=== PATIENT | male | born 1975 | race Caucasian/White ===

== ENCOUNTER 2018-02-12 00:04 | Inpatient (IN) ==
[2018-02-12 01:16] LABS: Basophils # 0.1 K/mcL (0.0-0.2); Basophils % 0.4 %; Eosinophils # 0.2 K/mcL (0.0-0.6); Eosinophils % 1.6 %; Hematocrit 51.7 % (37.5-50.1); Immature Granulocytes % 0.5 % (0-4); Lymphocytes # 2.2 K/mcL (0.6-4.6); Lymphocytes % 18.5 %; Mean Corpuscular HGB Conc 34.8 g/dL (31.6-35.5); Mean Corpuscular Hemoglobin 32.8 pg (28.0-33.3); Mean Corpuscular Volume 94.3 fL (83.0-100.0); Mean Platelet Volume 10.2 fL (9.4-12.4); Monocytes # 0.7 K/mcL (0.0-1.3); Monocytes % 6.1 %; Neutrophils # 8.7 K/mcL (1.6-8.9); Platelet Count 234 K/mcL (140-400); Red Blood Count 5.48 M/mcL (4.19-5.50); Segmented Neutrophils % 72.9 %
[2018-02-12 01:19] LABS: INR 0.9; Prothrombin Time 9.7 Seconds (9.4-12.1)
[2018-02-12 01:22] LABS: Activated Partial Thrombo Time 30.7 Seconds (26.0-36.0)
[2018-02-12 01:38] LABS: BUN/Creatinine Ratio 17 (6-26); Blood Urea Nitrogen 16 mg/dL (6-20); Calcium 9.9 mg/dL (8.6-10.3); Carbon Dioxide 22 mEq/L (23-29); Chloride 98 mEq/L (98-107); Glucose 379 mg/dL (70-105); Osmolality,Calculated 291 (280-300); Potassium 4.4 mEq/L (3.5-5.1); Sodium 132 mEq/L (136-145); eGFR For Non-African Americans > 60 (> 60)
[2018-02-12 01:48] LABS: Troponin I 0.99 ng/mL (< 0.04)
[2018-02-12] MEDS ORDERED: Aspirin 81 MG TAB.CHEW PO ONE (02:05)
[2018-02-12] MEDS ORDERED: Nitroglycerin 0.4 MG TAB.SUBL SL ONE (02:09)
[2018-02-12] MEDS: Nitroglycerin 0.4 MG TAB.SUBL SL PRN ×3 (02:11→02:36)
[2018-02-12] MEDS ORDERED: Isovue-370 500 ML INFUS..BTL IV ONE (03:40)
[2018-02-12] MEDS ORDERED: Amiodarone 150 MG in D5% in Water 100 ML IVPB ONE (03:49)
[2018-02-12] MEDS ORDERED: Amiodarone Premix 360 MG/200 ML BAG IVC ONE (03:50)
--- NOTE | 2018-02-12 03:52 | Emergency Department Note ---
Disposition Clinical Impression: Non-STEMI (non-ST elevated myocardial infarction), Nonsustained ventricular tachycardia Chest pain Qualifiers: Chest pain type: unspecified Qualified Code(s): R07.9 - Chest pain, unspecified Disposition: Admitted As Inpatient Condition: Serious Referrals: Danny Jacob Jr, MD [Primary Care Provider] - Forms: ED Satisfaction Letter Time of Disposition: 05:42 Chest Pain HPI - General Chief Complaint: ED Chest Pain Stated Complaint: cp Time Seen by Provider: 02/12/18 02:02 Source: patient, family Limitations: no limitations Vital Signs Reviewed: Yes Nursing Notes Reviewed: Yes - History of Present Illness HPI Narrative: 42-year-old male with history of type 2 diabetes and hypertension but is noncompliant and does not take medication for the hypertension. He presents complaining of right-sided chest pain which started about 5 PM this evening and has been constant since onset. He states the pain was mild initially and then became worse and he did develop some diaphoresis with the pain. No shortness of breath. The pain radiated to the right axilla and to the right scapular region. He still has the pain and rates it about a 5 out of 10. He is a smoker and smokes one pack per day. Patient relates that he has been having this same pain intermittently for the past several months but not as severe and it usually does not last as long. The pain is usually associated with certain movements and use of the right arm and shoulder. Also the pain is reproduced with palpation over the right mid anterior chest. He has no prior cardiac history. Pt complaint: chest pain Onset (ago): hour(s) (7) Duration: constant Onset: during rest Pain Location: right chest Severity: moderate Severity scale (1-10): 5 Quality: aching, sharp Pain Radiation: other (Right axilla and right scapula) Improves with: nothing Worsens with: movement Associated symptoms: Reports: diaphoresis. Denies: nausea, vomiting, dyspnea, sense of impending doom, syncope, palpitations, fever, cough, leg swelling Treatments prior to arrival chest pain: none - Related Data Allergies Allergy/AdvReac Type Severity Reaction Status Date / Time Penicillins Allergy Hives Verified 05/14/15 20:25 All systems ED: reviewed and negative except as stated. Constitutional: Denies: fever, chills Cardiovascular: Reports: chest pain. Denies: palpitations, dyspnea on exertion , edema, syncope Respiratory: Denies: cough, dyspnea Gastrointestinal: Denies: abdominal pain, nausea, vomiting, diarrhea, hematemesis, melena, hematochezia Genitourinary: Denies: dysuria, frequency, hematuria Musculoskeletal: Denies: back pain, neck pain Neurological: Denies: headache, weakness, numbness, paresthesias Psychiatric: Denies: anxiety, depression Endocrine: Denies: fatigue Hematological/Lymphatic: Denies: easy bleeding, easy bruising Allergic/Immunologic: Denies: facial swelling Chest Pain PMH - Past Medical History Medical history: Reports: diabetes, hyperlipidemia, hypertension Psychiatric history: Reports: no psych history - Social History Smoking Status: Current every day smoker Alcohol use: Reports: none Drug use: Reports: none Physical Exam - General Limitations: no limitations General appearance: alert, in no apparent distress - Head Head exam: atraumatic, normocephalic, normal inspection - Eye Eye exam: Present: normal appearance, PERRL, EOMI - ENT ENT exam: normal exam, normal oropharynx, mucous membranes moist, TM's normal bilaterally - Neck Neck exam: Present: normal inspection, full ROM, trachea midline. Absent: tenderness, meningismus - Chest Chest inspection: Present: normal inspection, symmetric chest wall rise, tenderness (There is tenderness to palpation over the right anterior chest wall which does reproduce the patient's chest discomfort.) - Respiratory Respiratory exam: Present: normal lung sounds bilaterally. Absent: respiratory distress, accessory muscle use - Cardiovascular Cardiovascular exam: Present: regular rate, normal rhythm, normal heart sounds - Abdominal Exam Abdominal exam: Present: soft, Non-Tender, normal bowel sounds - Extremities Exam Extremities exam: Present: normal inspection, full ROM. Absent: tenderness, pedal edema - Back Exam Back exam: Present: normal inspection. Absent: CVA tenderness (R), CVA tenderness (L) - Neurological Exam Neurological exam: Present: alert, oriented X3. Absent: motor sensory deficit - Psychiatric Psychiatric exam: Present: normal affect, normal mood - Skin Skin exam: Present: warm, dry, intact, normal color. Absent: cyanosis, diaphoresis Course - Consultations Consultation #1: Discussed with the rn lvn accreditation manager, Dr. Chambers, and he recommended a CTA to make sure the patient does not have aortic dissection and if that is negative he can be admitted to the hospitalist for serial troponins. He did recommend heparin after ruling out dissection. Just after I talked with him initially patient had a run of V. tach about 20 beats which resolved spontaneously. He was asymptomatic with this episode. I am placing him on amiodarone bolus and infusion. CTA of the chest abdomen pelvis was negative. Patient was started on low-dose heparin infusion for ACS. The hospitalist, Dr. Castro, was consulted and accepted admission of the patient. Time: 03:39 Vital Signs Temperature 97.9 F 02/12/18 00:17 Pulse Rate 87 02/12/18 00:17 Respiratory Rate 18 02/12/18 00:17 Blood Pressure 180/121 02/12/18 00:17 O2 Sat by Pulse Oximetry 97 02/12/18 00:17 Temperature 97.9 F 02/12/18 00:17 Pulse Rate 78 02/12/18 04:52 Respiratory Rate 11 02/12/18 04:52 Blood Pressure 157/101 02/12/18 04:52 O2 Sat by Pulse Oximetry 96 02/12/18 04:52 Oxygen Delivery Oxygen Delivery Nasal Cannula Chest Pain - Lab Data Lab results reviewed: Yes I reviewed the patient's lab results. Result diagrams: 02/12/18 00:50 02/12/18 00:50 Lab Results 02/12/18 02/12/18 02/12/18 Range/Units 00:50 00:50 00:50 WBC 11.9 H (4.3-11.1) K/mcL RBC 5.48 (4.19-5.50) M/mcL Hgb 18.0 H (12.9-16.9) g/dL Hct 51.7 H (37.5-50.1) % MCV 94.3 (83.0-100.0) fL MCH 32.8 (28.0-33.3) pg MCHC 34.8 (31.6-35.5) g/dL RDW 12.0 (11.5-14.5) % Plt Count 234 (140-400) K/mcL MPV 10.2 (9.4-12.4) fL Immature Gran % 0.5 (0-4) % Seg Neutrophils % 72.9 % Lymphocytes % 18.5 % Monocytes % 6.1 % Eosinophils % 1.6 % Basophils % 0.4 % Neutrophils # 8.7 (1.6-8.9) K/mcL Lymphocytes # 2.2 (0.6-4.6) K/mcL Monocytes # 0.7 (0.0-1.3) K/mcL Eosinophils # 0.2 (0.0-0.6) K/mcL Basophils # 0.1 (0.0-0.2) K/mcL PT 9.7 (9.4-12.1) Seconds INR 0.9 APTT 30.7 (26.0-36.0) Seconds Sodium 132 L (136-145) mEq/L Potassium 4.4 (3.5-5.1) mEq/L Chloride 98 (98-107) mEq/L Carbon Dioxide 22 L (23-29) mEq/L BUN 16 (6-20) mg/dL Creatinine 0.92 (0.70-1.30) mg/dL Est GFR ( Amer) > 60 (> 60) Est GFR (Non-Af Amer) > 60 (> 60) BUN/Creatinine Ratio 17 (6-26) Glucose 379 H (70-105) mg/dL Calculated Osmolality 291 (280-300) Calcium 9.9 (8.6-10.3) mg/dL Troponin I 0.99 H* (< 0.04) ng/mL - Radiology Data Radiology results reviewed: Yes I reviewed the patient's radiology results. Chest X-Ray 02/12/18 00:56 IMPRESSION: No acute cardiopulmonary disease. D/ / Jay Slade MD / Jay Slade MD Interpreting Provider: Jay Slade MD Abdomen/Pelvis CTA 02/12/18 03:40 IMPRESSION: 1. No evidence of an acute aortic syndrome. 2. No acute pulmonary embolism in the central pulmonary arterial tree. 3. Diffuse airway inflammation may be seen in asthma, bronchitis or smoking. No consolidative airspace disease. 4. No acute abdominopelvic findings. D/ / Anthony Lynn / Anthony Lynn Interpreting Provider: Anthony Lynn Chest CTA 02/12/18 03:40 IMPRESSION: 1. No evidence of an acute aortic syndrome. 2. No acute pulmonary embolism in the central pulmonary arterial tree. 3. Diffuse airway inflammation may be seen in asthma, bronchitis or smoking. No consolidative airspace disease. 4. No acute abdominopelvic findings. D/ / Anthony Lynn / Anthony Lynn Interpreting Provider: Anthony Lynn - EKG Data EKG attestation: Yes I reviewed and interpreted this EKG. EKG results narrative: EKG shows a sinus rhythm with ventricular rate of 88. MN interval 117. No acute ST segment elevation or depression. No acute T-wave abnormalities. Critical Care Time Critical Care Time: Yes Total Critical Care Time: 45 Attestation: Critical care performed: Time is exclusive of separately billable procedures. Time includes: direct patient care, patient reassessment, coordination of patient care, interpretation of data (laboratory data, radiology data, and respiratory data), review of patient's medical records, medical consultation and documentation of patient care. Procedures included in critical care time: Procedures excluded from critical care time:
[2018-02-12] MEDS ORDERED: Amiodarone Premix 150 MG/100 ML BAG IVPB ONE (04:00)
[2018-02-12] MEDS ORDERED: *HR* Heparin 5,000 UNIT/ML VIAL IVP PRN ×2 (05:35)
[2018-02-12] MEDS ORDERED: *HR* Heparin 5,000 UNIT/ML VIAL IVP ONE (05:35)
[2018-02-12] MEDS ORDERED: Heparin 25,000 UNIT/500 ML D5W 25,000 UNIT/500 ML BAG IVC SCH (05:45)
--- NOTE | 2018-02-12 08:10 | Internal Med History&Physical ---
Date of Encounter: 02/12/18 Time of Encounter: 08:05 Internal Medicine - H&P: HPI Chief complaint: Chest Pain Admitted From: Home Plans for Post Hospital Care: Home History of present illness: Mr. Martins is a 42 year old male with past history of hypertension diabetes and tobacco dependence who presents to [facility] with chief complaint of chest pain. The patient states that last evening he developed sudden onset right-sided chest discomfort that he describes as a dull ache. The patient states that he was not participating in exertion or physical activity at the time. The patient states that this pain radiated to his right back and right shoulder. He states he has had this in the past however he developed diaphoresis and now with nausea which he has never had associated with this pain before. Patient presented to the emergency department and had an elevated troponin of 0.99 and after CTA ruled out aortic dissection was started on IV heparin drip. The patient did have T-wave inversions in the lateral leads in a subsequent EKG. Also in the emergency department the patient developed episode of nonsustained ventricular tachycardia. This terminated spontaneously however the patient was started on IV amiodarone in the emergency room. Currently the patient states he continues to have the right -sided chest pain. He does have pain with palpation of the right pectoral muscle; that he states is similar to the discomfort that he has been describing. The patient states he has had a stress test but it was over 20 years ago. Other than the chest pain the patient admits to mild nausea currently denies any shortness of breath, fevers, palpitations, vomiting, diarrhea, abdominal pain, blurry vision, double vision, dyspnea on exertion, orthopnea. Patient also admits that his father from [place] while in his 40s Past Med Surg Social Fam HX - Past Medical History Medical history: diabetes, hyperlipidemia, hypertension Psychiatric history: no psych history - Past Surgical History Surgical History: no surgical history - Social History Smoking Status: Current every day smoker Smokeless Tobacco Status: No Alcohol use: none Drug use: none Activity Level: Independent ambulation - Family History Father Paternal Hx Family Cardiac Disorders: Yes (Father from [place] in his 40s) - Additional Family History Additional family history: Patient denies any contributory family history other than paternal cardiac disease Internal Medicine - H&P: Meds 3 Allergy/AdvReac Type Severity Reaction Status Date / Time Penicillins Allergy Hives Verified 05/14/15 20:25 All Systems PM: A 10-system review of systems was performed and is negative for pertinent findings except as documented above in the HPI. Review of systems: 10 point review of systems is obtained and is otherwise negative other than described in history of present illness - Constitutional Vitals: Temp Pulse Resp BP Pulse Ox 98.1 F 85 18 154/114 94 02/12/18 06:53 02/12/18 06:53 02/12/18 06:53 02/12/18 06:53 02/12/18 06:53 Exam: Constitutional: No acute distress, Alert Psych: AAO x 3 HEENT: NCAT, EOMI Neck: supple, no JVD Cardio: regular rate and rhythm, +s1s2, no murmurs/rubs/gallops, no JVD Chest: admits to pain with palpation over right lower pectoral muscle Resp: clear to ascultation bilaterally, no wheezes/rales/ronchi Abd: obest, soft, non tender/non distended, positive bowel sounds, no gaurding/ reboud/ridgitity Extremities: no clubbing/cyanosis/edema appreciated Neuro: no focal deficits appreciated Lymph: no cervical/supraclavicular adenopahty apprecitated Internal Med - H&P Results - Labs CBC & Chem 7: 02/12/18 00:50 02/12/18 00:50 - Assessment and plan (1) Chest pain Current Visit: Yes Status: Acute Assessment and plan: -Patient presented with atypical chest pain as evidenced by reproducibility -Pain right sided with radiation to shoulder -Has had this pain in the past however now with diaphoresis and nausea -Elevated troponins and ischemic changes on EKG -EKG personally reviewed second EKG with T-wave inversions in lateral leads -Continue heparin drip -Await cardiology evaluation -Keep nothing by mouth -See NSTEMI a/p below -CTA of chest unremarkable; report reviewed -CTA of Abdomen and pelvis unremarkable; report reviewed Qualifiers: Chest pain type: chest pain due to myocardial ischemia Ischemic chest pain type: unstable angina pectoris Qualified Code(s): I20.0 - Unstable angina (2) Non-STEMI (non-ST elevated myocardial infarction) Current Visit: Yes Status: Acute Assessment and plan: -Elevated troponin with many risk factors including htn, dm, obesity, tobacco dependence, early family history of [place] with -trend troponins -heparin gtt -cardiology consult -keep npo for LHC vs stress testing as deemed necessary by cardiology -start asa, bb, statin -check lipid panel (3) Nonsustained ventricular tachycardia Current Visit: Yes Status: Acute Assessment and plan: -Patient with episode of nonsustained ventricular tachycardia and emergency department -Possibly related to his current NSTEMI -Started on IV amiodarone -Can likely discontinue amiodarone and beta simba will be started this morning ; however will await cardiology input (4) Diabetes Current Visit: Yes Status: Acute Assessment and plan: -Chronic type 2 diabetes mellitus -On metformin; will hold while inpatient -Sided on sliding scale coverage -monitor Accu-Cheks Qualifiers: Diabetes mellitus type: type 2 Diabetes mellitus terminal supervisor insulin use: without usp use Diabetes mellitus complication status: with hyperglycemia Qualified Code(s): E11.65 - Type 2 diabetes mellitus with hyperglycemia (5) HTN (hypertension) Current Visit: Yes Status: Acute Assessment and plan: -Blood pressure elevated -On home medication however unsure which one and medications are verified -Resume home medications once verified -We will start beta simba for now Qualifiers: Hypertension type: essential hypertension Qualified Code(s): I10 - Essential (primary) hypertension (6) Tobacco dependence due to cigarettes Current Visit: Yes Status: Acute Assessment and plan: -Counseled on smoking cessation -declined nicotine patch currently (7) Morbid obesity with BMI of 45.0-49.9, adult Current Visit: Yes Status: Acute Assessment and plan: -Lifestyle modifications encouraged (8) DVT prophylaxis Current Visit: Yes Status: Acute Assessment and plan: hep gtt - Time Spent With Patient Total time spent is greater than 50% in coordination of care (as documented) at patient's floor/unit and/or counseling patient: Greater than 35 minutes (37 minutes)
[2018-02-12] MEDS ORDERED: Naloxone 0.4 MG/ML INJ IVP PRN (08:16)
[2018-02-12 08:42] LABS: Chol/HDL Ratio 7.4 (0-4.9); Cholesterol 267 mg/dL (< 200); HDL Cholesterol 36 mg/dL (40-59); Triglycerides 440 mg/dL (< 150)
[2018-02-12 08:48] LABS: Troponin I 23.19 ng/mL (< 0.04)
--- NOTE | 2018-02-12 09:02 | Electrocardiograph Report ---
[place] [id number] Test Date: 2018-02-12 Pat Name: Spencer Martins Department: 104 Room: 2N12 Gender: M [employer] Internship: [place] : 1975 Requested By: Ganesh Gibbons Order Number: [id number] Reading MD: Russ Manzano Measurements Intervals [place] Rate: 88 P: 51 CO: 117 QRS: 268 QRSD: 114 T: 67 QT: 344 QTc: 390 Interpretive Statements SINUS RHYTHM WITH SHORT CO INTERVAL LEFT ATRIAL ENLARGEMENT Superior QRS axis Electronically Signed On 02-12-2018 9:01:12 EDT by Russ Manzano
--- NOTE | 2018-02-12 09:04 | Cardiology Consult Note ---
Date of Encounter: 02/12/18 Time of Encounter: 08:30 Assessment and Plan (1) Non-STEMI (non-ST elevated myocardial infarction) Current Visit: Yes Status: Acute Initial troponin 0.99, now 23.12. No acute ECG changes; T wave inversions ( lateral leads) noted on most recent ECG. No prior CV history. 5/10 chest/right arm discomfort upon exam--resistant to NTG tabs, IV morphine. Reviewed telemetry strips with Dr. Kevin, do not believe is VT but rather idioventricular rhythm (Rate 90's). Will d/c amiodarone gtt. Recommend urgent LHC with possible PCI; alternatives, risks, and benefits discussed, he is agreeable to proceed. Discussed importance of medication compliance if FLORENCIO warranted, he is agreeable. Continue IV heparin gtt, asa, statin, and BB. Will start ACEi s/p LHC to improve BP control. Cardiac reheb consult. Smoking cessation counseling provided. Check TTE to eval structure and function. Will continue to follow. (2) HTN (hypertension) Current Visit: Yes Status: Chronic Hx of HTN; suspect poorly controlled in the outpatient setting d/t medication nonadherence. Continue BB. Will likely need additional agent, will start ACEi (after LHC). Continue to monitor closely. Qualifiers: Hypertension type: essential hypertension Qualified Code(s): I10 - Essential (primary) hypertension (3) Tobacco dependence due to cigarettes Current Visit: Yes Status: Acute Smoking cessation counseling provided. Discussion w patient/family: The assessment and plan as outlined above was discussed with the patient and/or family members who expressed understanding and agreement. All questions were answered. Thank you for involving us in the care of your patient. Please call with any questions. The patient will be discussed and reviewed with Dr. Kevin; changes to be made accordingly. History of Present Illness Consult date: 02/12/18 Requesting physician: Alfred Landeros Consult reason: NSTEMI Chief complaint: Chest pain History of present illness: Mr. Martins is a 42 year old male with PMHx significant for HTN, DMII, tobacco dependence who presented to the ED with complaints of right shoulder/ chest discomfort. He reports symptoms started yesterday after pulling down his garage door. He reports he typically has right shoulder discomfort when he does this--has occurred for 1+ year and has went through PT; pain usually improves a few hours later after he takes a motrin, however yesterday pain did not improve which prompted ED evaluation. Associated symptoms include diaphoresis and shortness of breath. Initial troponin 0.99, now 23.12. Lateral T wave changes noted on most recent ECG. He reports discomfort 5/10 upon exam--reports does not improve with NTG or IV morphine. No recent CV testing--reports negative stress test around 20 years ago. Reports he often forgets to take his medications. Past Med Surg Social Fam HX - Past Medical History Attestation: Yes The following information was validated with the patient. Source: patient Medical history: diabetes, hyperlipidemia, hypertension Psychiatric history: no psych history - Past Surgical History Surgical History: no surgical history Additional surgical history: cyst removed from tailbone - Social History Smoking Status: Current every day smoker Packs per day: 1/2 Smokeless Tobacco Status: No Alcohol use: none Drug use: none - Family History Father Paternal Adopted: No Living Status: Cause of : [place]/smoke inhalation Hx Family Cardiac Disorders: Yes (Father from [place] in his 40s) Mother Adopted: No Age: 70 Family Member Ethnicity: Non- Living Status: Still Living Hx Family Cardiac Disorders: No Hx Family Respiratory Disorders: No Hx Family Cancer: No Hx Family GI Disorders: No Hx Family Genitourinary Disorders: No Hx Family Endocrine Disorder: No Hx Family Musculoskeletal Disorders: No Hx Family Neuromuscular Disorders: No Hx Family Neurologic Disorders: Yes (Early Onset Dementia) Hx Family HEENT Disorders: No Hx Family Autoimmune Disorders: No Hx Family Reproductive Disorders: No Hx Family Psychosocial Disorders: No Hx Family Medical Disorders: No Medications and Allergies Lisinopril [Zestril] 20 mg PO DAILY 02/12/18 [History] Metformin HCl [Metformin HCl ER] 1,000 mg PO DAILY 02/12/18 [History] 3 Allergy/AdvReac Type Severity Reaction Status Date / Time Penicillins Allergy Hives Verified 05/14/15 20:25 All Systems Review: The remainder of the systems were reviewed and are negative - Cardiovascular Cardiovascular: as per HPI Physical Examination Vital Signs, Last 4 Hours Temp Pulse Resp BP Pulse Ox 02/12/18 08:43 94 02/12/18 06:53 98.1 F 85 18 154/114 94 02/12/18 06:45 20 162/112 General: Conversant, Other (pale/diaphoretic) HEENT: Atraumatic, Normocephaly Cardiac: Reg Rate and Rhythm, Normal S1 and S2 Lungs: Normal Breath Sounds Neuro: Alert and responsive Abdomen: Soft Skin: No rashes noted on visualized skin Musculoskeletal: No Chest Wall Tenderness Extremities: No Edema, Normal Pulses Results 02/12/18 00:50 02/12/18 00:50 Lab Results 02/12/18 07:32 Troponin I 23.19 H* Active Medications Aspirin (Aspirin) 81 mg PO DAILY [facility] Stop: 08/14/18 09:01 Atorvastatin Calcium (Lipitor) 40 mg PO HS ASHLIE Stop: 08/14/18 21:01 Carvedilol (Coreg) 3.125 mg PO BIDWM ASHLIE PRN Reason: Protocol Stop: 08/14/18 09:01 Heparin Sodium (Porcine) (Heparin) 4,000 unit IVP Q6HR PRN PRN Reason: SEE COMMENTS Stop: 08/14/18 05:36 Heparin Sodium (Porcine) (Heparin) 2,000 unit IVP Q6H PRN PRN Reason: SEE COMMENTS Stop: 08/14/18 05:36 Heparin Sodium/Dextrose (Heparin 25,000 Unit/500 Ml D5w) 25,000 unit in 500 mls @ 20.031 mls/hr IVC .Q24H ASHLIE; 9.2 UNIT/KG/HR PRN Reason: Protocol Stop: 08/14/18 05:46 Last Admin: 02/12/18 06:32 Dose: 9.2 unit/kg/hr, 20.031 mls/hr Insulin Human Lispro (Humalog) 0 units SQ HS [facility] PRN Reason: Protocol Stop: 08/14/18 21:01 Insulin Human Lispro (Humalog) 0 units SQ TIDAC [facility] PRN Reason: Protocol Stop: 08/14/18 09:01 Naloxone HCl (Narcan) 0.4 mg IVP Q2MIN PRN PRN Reason: SEE COMMENTS Stop: 08/14/18 08:17 Nitroglycerin (Nitroglycerin) 0.4 mg SL Q5MIN PRN PRN Reason: Chest Pain Stop: 08/14/18 02:06 Last Admin: 02/12/18 02:36 Dose: 0.4 mg - Imaging and Cardiology Echo: pending Other Results: Telemetry review: avg HR=85 SR. No NSVT noted. - EKG Interpretation EKG results cardiology: personally reviewed Consult Discharge Plan - Plan Referrals: Danny Jacob Jr, MD [Primary Care Provider] -
--- NOTE | 2018-02-12 09:04 | Pre-Sedation Evaluation ---
Pre-sedation evaluation - Pre-sedation checklist Date of procedure: 02/12/18 Procedure: LHC Recent Vitals: Last Vital Signs Temp 98.1 F 02/12/18 06:53 Pulse 85 02/12/18 06:53 Resp 18 02/12/18 06:53 BP 154/114 02/12/18 06:53 Pulse Ox 94 02/12/18 08:43 ASA Classification *see protocol: CLASS II-Mild systemic disease Cardiac Registry (Cardio Only) - Functional Capacity Functional Capacity: >=4 METS with symptoms - Clincal Frailty Scale Clinical Frailty Scale: Vulnerable
[2018-02-12] MEDS ORDERED: 0.9 % Sodium Chloride 1,000 ML ONE ×2 (09:06→10:40)
[2018-02-12] MEDS: Insulin LISPRO 300 UNITS/3 ML VIAL SQ SCH ×3 (09:13→16:49)
[2018-02-12] MEDS: Aspirin 81 MG TAB.CHEW PO SCH (09:13)
[2018-02-12] MEDS ORDERED: *HR* Midazolam HCl 2 MG/2 ML VIAL ONE ×2 (09:27→10:34)
[2018-02-12] MEDS ORDERED: *HR* FentaNYL (PF) 100 MCG/2 ML VIAL ONE (09:27)
[2018-02-12] MEDS ORDERED: *HR* Ticagrelor 90 MG TABLET ONE (10:20)
[2018-02-12] MEDS ORDERED: Tirofiban 12.5 MG/250ML 12.5 MG/250 ML BAG IVC SCH (10:30)
[2018-02-12] MEDS ORDERED: *HR* Labetalol 100 MG/20 ML MDV ONE (10:34)
[2018-02-12] MEDS ORDERED: Ondansetron 4 MG/2 ML VIAL ONE ×2 (10:39→19:25)
[2018-02-12] MEDS ORDERED: Tirofiban 12.5 MG/250ML 12.5 MG/250 ML BAG ONE (10:40)
[2018-02-12] MEDS ORDERED: ISOVUE-370 200 ML INFUS..BTL IV ONE ×2 (10:40→10:41)
[2018-02-12] MEDS ORDERED: Nitroglycerin 1,000 MCG/10 ML VIAL IV ONE (10:41)
[2018-02-12] MEDS ORDERED: *HR* Heparin 10,000 UNIT/10 ML VIAL ONE (10:41)
[2018-02-12] MEDS ORDERED: Heparin 1,000 UNITS/500 mL 500 ML ONE (10:41)
--- NOTE | 2018-02-12 10:48 | Invasive Diagnostic Lab Proc ---
Name: Spencer Martins Date of Study: 02/12/2018 Date: 1975 Ht: 72.0in Medical Record#: [id number] Age: 42 Wt: 238.10lb Gender: Male BSA: 2.29 Order #: [id number] BMI: 32.28 Physicians Procedure Physician: Masoud Sterling MD Referring MD: Referring MD: Staff Name Position Time In Alessandra Kumar RN Still Pump Operator 09:13 AM Aleshia Saini RT (R) Scrub 09:13 AM Basim Wynn RT (R) Monitor 09:13 AM Indications Indication Non-Stemi Procedures Performed Procedure L HRT ARTERY/VENTRICLE ANGIO PRQ CARD FLORENCIO STENT W/ANGIO 1 VSL Pre-Procedure Checklist Informed consent is complete signed and on chart. H&P is on chart. ID band is on and ID verified with patient. Patient NPO for procedure The procedure was described for the patient and questions were answered. Blood Pressure: 165/104 ECG is on chart. Rhythm: NSR Plan of Care Patient will tolerate the procedure without complications. Adequate level of comfort will be maintained. Hemodynamics will remain stable Patient will recover from procedure without complications. Respiratory function will be maintained. Cardiac rhythm will remain stable. Patient temperature will be maintained. Patient and/or family have verbalized understanding of the procedure. Patient Education Chief Complaint/Reason for Test: Cardiac Cath Developmental Category: Adult (18-64 years) Developmentally Appropriate for Age: Yes Learning Barriers: None Education Needs: Procedure Education Method: Verbal Information Taught: Cardiac Cath Educational Evaluation: Able to repeat information Intravenous Access Time IV Size Location DC'd Fluid/Drip Rate Units RN 09:22 AM 20g 1 1/4" Patent On Arrival Lt Antecubital 0.9NaCl 25 ml/hr Alessandra Kumar RN 09:22 AM 20g 1 1/4" Patent On Arrival Lt Hand Allergies PCN (penicillin) Vital Signs Time BP (mmHg) HR (bpm) O2 Sat. RR (bpm) LOC 09:21 AM 165 / 104 92 98 % 18 5 = Fully awake and oriented or at pre-proc level 09:21 AM / % 4 = Oriented but drowsy 09:36 AM / % 4 = Oriented but drowsy 09:51 AM / % 4 = Oriented but drowsy 10:06 AM / % 5 = Fully awake and oriented or at pre-proc level 09:28 AM 182 / 133 91 98 % 09:31 AM 165 / 104 89 96 % 18 09:36 AM 162 / 104 81 96 % 16 09:41 AM 159 / 112 78 95 % 12 09:46 AM 169 / 100 83 93 % 24 09:51 AM 166 / 104 89 93 % 20 09:56 AM 156 / 99 86 94 % 21 10:01 AM 155 / 100 86 93 % 21 10:06 AM 155 / 108 87 92 % 20 10:11 AM 157 / 105 87 93 % 21 10:16 AM 158 / 105 89 91 % 21 10:21 AM 153 / 102 92 93 % 20 10:22 AM / % 5 = Fully awake and oriented or at pre-proc level Procedural Medications Time Medication Dose Units Method Given By 09:26 AM Oxygen 2 L/min nasal cannula Alessandra Kumar RN 09:29 AM Versed 0.5 mg Intravenous Alessandra Kumar RN 09:29 AM Fentanyl 25 mcg Intravenous Alessandra Kumar RN 09:37 AM Lidocaine 2% 10 ml Subcutaneous Masoud Sterling MD 09:38 AM Versed 0.5 mg Intravenous Alessandra Kumar RN 09:38 AM Fentanyl 25 mcg Intravenous Alessandra Kumar RN 09:55 AM Heparin 5000 units Intravenous Alessandra Kumar RN 09:58 AM Aggrastat Bolus: 54 ml Intravenous Alessandra Kumar RN 09:58 AM Aggrastat 12.5mg/250ml 19.5 ml Intravenous Alessandra Kumar RN 10:23 AM Brilinta 180 mg Orally Alessandra Kumar RN 10:33 AM Versed 0.5 mg Intravenous Alessandra Kumar RN 10:33 AM Labetolol 10 mg Intravenous Alessandra Kumar RN 10:39 AM Zofran 4 mg Intravenous Alessandra Kumar RN ASA Classification: CLASS II- Mild systemic disease (i.e. well-controlled diabetes, hypertension, asthma, cigarette smoking) Adalid Score Preprocedure Postprocedure Activity 2- Moves 4 extremities sustained head lift Activity 2- Moves 4 extremities sustained head lift Circulation 2- SBP +/= 20 points of pre-anesthetic level Circulation 2- SBP +/= 20 points of pre-anesthetic level Consciousness 2- Awake and alert oriented x 3 Consciousness 2- Awake and alert oriented x 3 O2 Saturation 2- Able to maintain O2 satruation of 92% on room air O2 Saturation 2- Able to maintain O2 satruation of 92% on room air Respiratory 2- Able to deep breathe and cough well Respiratory 2- Able to deep breathe and cough well Total Score 10 Total Score 10 Contrast Agent: Isovue Diagnostic Contrast: 204 ml Total Contrast: 204 ml Fluoro Dose: 39406 mGy Activated Clotting Time Time Seconds to Clot 09:55 AM 141 10:24 AM 200 Procedure Log Time Note Enter By 09:13 AM Patient charges- Angio tray pack, Navilyst 3mm J, Pulse Oximetry and ACIST tubing and transducer :13 AM Alessandra Kumar RN Position: Still Pump Operator Time in: :13 09:13 AM Aleshia Saini RT (R) Position: Scrub Time in: ::13 AM Basim Wynn RT (R) Position: Monitor Time in: :13 09:21 AM 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 09:25 AM Procedure start 09:25 :26 AM ASA Class CLASS II- Mild systemic disease (i.e. well-controlled diabetes, hypertension, asthma, cigarette smoking) :26 AM Hair removed from procedure site in procedure lab using clippers. Bilateral groin prepped with Chloraprep by Aleshia Saini RT (R), then patient was draped. Skin intact. : AM Time: : Oxygen on at 2 L/min per nasal cannula by Alessandra Kumar RN ilson 09:26 AM Vitals capture started with the following parameters, Patient=Adult, Interval=5 min, Initial Yepkjccu=765 mmHg, Deflation Rate=5 mmHg, Cuff placed on Right Arm 09:28 AM HR=91 bpm, EZJJ=354/133 mmhg, SpO2=98.0 %, EtCO2=33 mmHg 09:28 AM Vitals capture stopped. 09:28 AM Vitals capture started with the following parameters, Patient=Adult, Interval=5 min, Initial Wllbhjai=588 mmHg, Deflation Rate=5 mmHg, Cuff placed on Right Arm 09:29 AM Time: 09:29 Versed 0.5 mg Intravenous Given by Alessandra Kumar RN 09: AM Time: 09:29 Fentanyl 25 mcg Intravenous Given by Alessandra Kumar RN 2 09:29 AM Recorded ECG: HR=91 Condition=Condition 1 09:30 AM Vitals capture stopped. 09:30 AM Vitals capture started with the following parameters, Patient=Adult, Interval=5 min, Initial Mtahhqtu=769 mmHg, Deflation Rate=5 mmHg, Cuff placed on Right Arm 09:31 AM HR=89 bpm, YSWP=404/104 mmhg, SpO2=96.0 %, Resp=18 B/min 09:34 AM Pressure channel 1 zero failed. 09:34 AM Pressure channel 1 zeroed. 09:36 AM HR=81 bpm, PICI=086/104 mmhg, SpO2=96.0 %, Resp=16 B/min, EtCO2=40 mmHg 09:36 AM Time: 09:21LOC: 4 = Oriented but drowsy 09:36 AM Time: 09:21 Patient comfortable and pain free: Yes 09:37 AM Time out performed according to hospital policy 09:38 AM Time: 09:37 10 ml Lidocaine 2% to right groin Subcutaneous Given by Masoud Sterling MD 09:38 AM Time: 09:38 Versed 0.5 mg Intravenous Given by Alessandra Kumar RN 09:38 AM Time: 09:38 Fentanyl 25 mcg Intravenous Given by Alessandra Kumar RN 09:38 AM Micro-Introducer Kit utilized for sheath placement 09:38 AM hand injected femoral angiogram [email or web address] 09:40 AM Access obtained by percutaneous puncture. 6Fr 10cm Terumo [place] sheath placed in right Femoral artery. [id number] ilson 09:40 AM 0.035 145cm Navilyst 3mmJ wire [id number] [email or web address] 09:40 AM 5Fr FR 4 catheter inserted over the wire DN [email or web address] 09:41 AM HR=78 bpm, ZYOW=990/112 mmhg, SpO2=95.0 %, Resp=12 B/min 09:41 AM Recorded Pressure: Ao, HR=81, Condition=Condition 1 (Aorta) Ao 144/103/123 09:42 AM RCA angiography performed in multiple views. [email or web address] 09:44 AM Catheter removed [email or web address] 09:44 AM 5Fr FL 4 catheter inserted over the wire [facility] [email or web address] 09:45 AM LCA angiography performed in multiple views. [email or web address] 09:45 AM Recorded Pressure: Ao, HR=81, Condition=Condition 1 (Aorta) Ao 146/101/121 09:46 AM HR=83 bpm, FVGH=390/100 mmhg, SpO2=93.0 %, Resp=24 B/min 09:47 AM Catheter removed [email or web address] 09:48 AM 5[email or web address] AM Lesion found in 1st Marginal. Pre Stenosis: 100 Pre KEIRY Flow: [email or web address] 09:50 AM Circumflex, Obtuse Marginal, Left Posterior Descending, and Left Posterolateral Coronary Arteries with 100 % stenosis. If graft is supplying this area, 0 % stenosis [email or web address] 09:51 AM HR=89 bpm, YVFB=083/104 mmhg, SpO2=93.0 %, Resp=20 B/min, EtCO2=38 mmHg 09:51 AM Time: 09:36 Patient comfortable and pain free: Yes [email or web address] 09:51 AM Time: 09:36LOC: 4 = Oriented but drowsy [email or web address] 09:51 AM Catheter selectively placed in left ventricle [email or web address] 09:52 AM Bolus angiogram of left Ventricle complete: 10 ml/sec for a total of 20 mls [email or web address] 09:52 AM Recorded Pressure: LV, HR=89, Condition=Condition 1 (Left Ventricle) LV 141/24/30 09:52 AM Recorded Pressure: LV, Ao, HR=86, Condition=Condition 1 (Left Ventricle) LV 128/40/42, (Aorta) Ao 136/52/95 09:53 AM Catheter removed [email or web address] 09:53 AM Inflation device was opened. [email or web address] 09:53 AM ACT Drawn [email or web address] 09:53 AM 6Fr XB LAD 3.5 [place] Bright-Tip guide catheter was used to cannulate the PCI vessel successfully. reused? No [email or web address] 09:55 AM At 09:55 the ACT was 141 seconds. [email or web address] 09:55 AM .014 [employer] [place] 190cm guide wire across target lesion- successful. reused? No [email or web address] 09:56 AM Time: 09:55 Heparin 5000 units Intravenous Given by Alessandra Kumar RN [email or web address] 09:56 AM HR=86 bpm, HKML=972/99 mmhg, SpO2=94.0 %, Resp=21 B/min, EtCO2=37 mmHg 09:58 AM wire removed to re shape [email or web address] 09:58 AM Time: 09:58 Aggrastat Bolus: 54 ml Intravenous Given by Alessandra Kumar RN [place] pump [email or web address] 09:58 AM Time: 09:58 Aggrastat 12.5mg/250ml 19.5 ml Intravenous Given by Alessandra Kumar RN [place] pump [email or web address] 09:58 AM wire advanced [email or web address] 10:01 AM HR=86 bpm, VKFA=754/100 mmhg, SpO2=93.0 %, Resp=21 B/min, EtCO2=38 mmHg 10:03 AM Recorded Pressure: Ao, HR=84, Condition=Condition 1 (Aorta) Ao 137/96/116 10:04 AM 1.5 mm x 15 mm Emerge Monorail balloon across target lesion- successful. reused? No [email or web address] 10:05 AM Balloon inflated @ 6 sowmya for 10 seconds [email or web address] 10:06 AM Balloon inflated @ 6 sowmya for 5 seconds [email or web address] 10:06 AM Balloon inflated @ 9 sowmya for 8 seconds [email or web address] 10:06 AM HR=87 bpm, YJQV=499/108 mmhg, SpO2=92.0 %, Resp=20 B/min 10:06 AM Balloon catheter removed intact. [email or web address] 10:06 AM Time: 09:51LOC: 4 = Oriented but drowsy [email or web address] 10:06 AM Time: 09:51 Patient comfortable and pain free: Yes [email or web address] 10:08 AM 2.0 mm x 12 mm Emerge Monorail balloon across target lesion- successful. reused? No [email or web address] 10:09 AM Balloon inflated @ 6 sowmya for 7 seconds [email or web address] 10:09 AM Balloon catheter removed intact. [email or web address] 10:11 AM 2.75mm x 16mm Synergy drug-eluting stent across target lesion- successful Lot #[id number] [email or web address] 10:11 AM HR=87 bpm, OFOE=016/105 mmhg, SpO2=93.0 %, Resp=21 B/min, EtCO2=36 mmHg 10:13 AM Stent deployed @ 9 sowmya for 11 seconds [email or web address] 10:14 AM Stent balloon reinflated @ 11 sowmya for 7 seconds [email or web address] 10:14 AM Stent delivery system removed intact. [email or web address] 10:15 AM 3.0 mm x 8mm NC Emerge balloon across target lesion- successful. reused? No [email or web address] 10:16 AM Balloon inflated @ 12 sowmya for 13 seconds [email or web address] 10:16 AM HR=89 bpm, VLHV=875/105 mmhg, SpO2=91.0 %, Resp=21 B/min, EtCO2=34 mmHg 10:17 AM Balloon inflated @ 16 sowmya for 10 seconds [email or web address] 10:17 AM Balloon inflated @ 12 sowmya for 5 seconds [email or web address] 10:17 AM Balloon catheter removed intact. [email or web address] 10:18 AM Guide wire removed intact. [email or web address] 10:19 AM Guide catheter removed intact. [email or web address] 10:19 AM Procedure completed at 10:19 02/12/2018 [email or web address] 10:20 AM Sign out completed: Radiation Dose 2397.38 mGy, 45458 cGy/cm2 Fluoro Time: 14.0 Isovue 370 - 200ml contrast 204 ml given by Masoud tSerling MD. Complications: NoneCardiac Rehab Consult needed: YesConfirmed administered medications: Yes [email or web address] 10:20 AM Isovue 370 - 200ml,1 Bottle(s) used. [email or web address] 10:20 AM Sheath left in place to be pulled on floor/holding areaV+Pad [email or web address] 10:20 AM Estimated Blood Loss: less than 20cc [email or web address] 10:21 AM Post ECG NSR [email or web address] 10:21 AM Post Blood Pressure 158/105 [email or web address] 10:21 AM 10:21 Post Pulses Bilateral DP & PT 1+ [email or web address] 10:21 AM Information taught Cardiac Cath and PCI [email or web address] 10:21 AM HR=92 bpm, MFNX=967/102 mmhg, SpO2=93.0 %, Resp=20 B/min 10:21 AM Education needs Procedure, Plan of Care, and Disease Process [email or web address] 10:21 AM Learning barriers :Sedated [email or web address] 10:21 AM Education Methods Verbal [email or web address] 10:21 AM Education evaluation Needs further instruction [email or web address] 10:22 AM Time: 10:06 Patient comfortable and pain free: Yes [email or web address] 10:22 AM Time: 10:06LOC: 5 = Fully awake and oriented or at pre-proc level [email or web address] 10:22 AM Site status No bleeding/hematoma - Rt Groin as reported by Aleshia Saini RT (R) at 10:22 [email or web address] 10: AM Opsite applied [email or web address] 10: AM Delay to floor No [email or web address] 10:22 AM No Family [email or web address] 10: AM Complications: None [email or web address] 10:23 AM Time: 10:23 Brilinta 180 mg Orally Given by Alessandra Kumar RN [email or web address] 10:24 AM At 10:24 the ACT was 200 seconds. [email or web address] 10:30 AM Report given to bertin GAITAN Pt taken to Room #12. 10:30 [email or web address] 10:31 AM Patient out of room: 10:31 [email or web address] 10:33 AM Time: 10:33 Versed 0.5 mg Intravenous Given by Alessandra Kumar RN [email or web address] 10:33 AM Time: 10:33 Labetolol 10 mg Intravenous Given by Alessandra Kumar RN [email or web address] 10:35 AM Lesion found in Mid RCA. Pre Stenosis: 100 Pre KEIRY Flow: [email or web address] 10:35 AM Right Coronary, Right Posterior Descending Arteries with Right Posterolateral and Acute Marginal branches with 100 % stenosis. If graft is supplying this area, 0 % stenosis [email or web address] 10:35 AM Lesion found in Mid LAD. Pre Stenosis: 60 Pre KEIRY Flow: [email or web address] 10:35 AM Mid/Distal Left Anterior Descending Coronary Artery and diagonal branches with 60% stenosis. If graft is supplying this area, 0 % stenosis [email or web address] 10:35 AM Lesion found in Proximal LAD. Pre Stenosis: 25 Pre KEIRY Flow: [email or web address] 10:35 AM Proximal Left Anterior Descending Coronary Artery with 25% stenosis. If graft is supplying this territory, 0 % stenosis. [email or web address] 10:37 AM Time: 10:22LOC: 5 = Fully awake and oriented or at pre-proc level [email or web address] 10:37 AM Time: 10:22 Patient comfortable and pain free: Yes [email or web address] 10:39 AM Time: 10:39 Zofran 4 mg Intravenous Given by Alessandra Kumar RN [email or web address] Complications Complication None None None Hemodynamics Pressures Site Systolic/A Wave Diastolic/V Wave Mean AO 144 103 123 AO 146 101 121 LV 141 24 30 LV 128 40 42 AO 136 52 95 AO 137 96 116 Post Procedure Information Blood Pressure: 158/105 mmHg Rhythm: NSR Post procedural instructions were given Site Checks Time Location Status Staff Sheath In? Note 10:22 AM Rt Groin No bleeding/hematoma Aleshia Saini RT (R) Pulses Time Site Pre-Procedure Post-Procedure Note 02/12/2018 9:22:00 AM Bilateral DP & PT 1+ 10:21:00 AM Bilateral DP & PT 1+ Updated by Basim Wynn RT (R) on 02/12/2018 10:40:46 AM Basim Wynn RT electronically signed on 02/12/2018 10:41:10 AM with status of Final
[2018-02-12] MEDS ORDERED: Perflutren Lipid Microsphere 1.3 ML in 0.9 % Sodium Chloride 8.7 ML IVP ONE (12:00)
[2018-02-12] MEDS ORDERED: Acetaminophen 325 MG TABLET PO PRN (15:40)
[2018-02-12] MEDS ORDERED: Ondansetron 4 MG/2 ML VIAL IVP PRN (19:24)
[2018-02-12] MEDS: Nicotine 14 MG PATCH.TD24 TD SCH (20:17)
[2018-02-12] MEDS ORDERED: Insulin LISPRO 300 UNITS/3 ML VIAL SQ SCH (21:00)
[2018-02-12] MEDS ORDERED: *HR* Ticagrelor 90 MG TABLET PO SCH (21:00)
[2018-02-13 04:39] LABS: Basophils % 0.2 %; Eosinophils % 0.2 %; Hematocrit 50.3 % (37.5-50.1); Hemoglobin 17.5 g/dL (12.9-16.9); Immature Granulocytes % 0.6 % (0-4); Lymphocytes # 2.2 K/mcL (0.6-4.6); Lymphocytes % 13.6 %; Mean Corpuscular HGB Conc 34.8 g/dL (31.6-35.5); Mean Corpuscular Hemoglobin 32.5 pg (28.0-33.3); Mean Corpuscular Volume 93.5 fL (83.0-100.0); Mean Platelet Volume 9.7 fL (9.4-12.4); Monocytes # 1.5 K/mcL (0.0-1.3); Monocytes % 9.1 %; Neutrophils # 12.3 K/mcL (1.6-8.9); Platelet Count 197 K/mcL (140-400); Red Blood Count 5.38 M/mcL (4.19-5.50); Red Cell Distribution Width 12.3 % (11.5-14.5); Segmented Neutrophils % 76.3 %
[2018-02-13 05:04] LABS: BUN/Creatinine Ratio 19 (6-26); Blood Urea Nitrogen 11 mg/dL (6-20); Calcium 9.2 mg/dL (8.6-10.3); Carbon Dioxide 24 mEq/L (23-29); Chloride 99 mEq/L (98-107); Glucose 247 mg/dL (70-105); Magnesium 1.8 mg/dL (1.6-2.6); Osmolality,Calculated 284 (280-300); Phosphorous 3.5 mg/dL (2.7-4.5); Potassium 4.1 mEq/L (3.5-5.1); Sodium 133 mEq/L (136-145); eGFR For Non-African Americans > 60 (> 60)
[2018-02-13] MEDS: Aspirin 81 MG TAB.CHEW PO SCH (08:19)
[2018-02-13] MEDS: Insulin LISPRO 300 UNITS/3 ML VIAL SQ SCH ×3 (08:21→17:00)
[2018-02-13 08:43] LABS: Estimated Average Glucose 263 mg/dl; Hemoglobin A1C 10.8 %
--- NOTE | 2018-02-13 11:29 | Internal Med Progress Note ---
Hospitalist Progress Note - Encounter Date of Encounter: 02/13/18 Time of Encounter: 09:00 - Subjective Interval History: Interim event noted. Underwent left heart catheter yesterday with FLORENCIO placed in proximal OM. Chronic 100% mRCA with collaterals from LAD noted. 60% LAD lesion. Doing well post procedure, denies any chest pain, shortness of breath, orthopnea, PND, or leg swelling. - Exam Vitals: Temp Pulse Resp BP Pulse Ox 98.7 F 113 18 113/85 94 02/13/18 07:51 02/13/18 07:51 02/13/18 07:51 02/13/18 07:51 02/13/18 07:51 Exam: General: Alert and oriented, not in acute distress. Cardiovascular:Normal S1 & S2, No JVD. Pulse regular. Lungs: clear to auscultation, no wheezes/rales Abdomen:Soft, non-tender, no rigidity. R groin with bruising but no obvious hematoma. Dressing dry and intact Extremities:No deformity or swelling Pulses: R fem and DP palpable - Assessment and Plan (1) Non-STEMI (non-ST elevated myocardial infarction) Current Visit: Yes Status: Acute Assessment and Plan: -Elevated troponin with many risk factors including htn, dm, obesity, tobacco dependence, early family history of PR with troponin >73 [facility] yesterday with FLORENCIO x1 in prox OM. mLAD 60%, 100% stenosis mRCA with collaterals from LAD Echo today showed EF 45-50% with mild diastolic dysfunction DAPT, statin, bb, MAE inhibitor He does not have any insurance, social work consult for medication follow with cardiology (2) Nonsustained ventricular tachycardia Current Visit: Yes Status: Acute Assessment and Plan: -Patient with episode of nonsustained ventricular tachycardia and emergency department, likely secondary to the above resolved since then, off amiodarone bb as above telemetry (3) Diabetes Current Visit: Yes Status: Acute Assessment and Plan: -Chronic type 2 diabetes mellitus A1c 10.8, on metformin as an outpatient BG poorly controlled on low-dose sliding scale. Will increase to moderate dose sliding scale -monitor Accu-Cheks will need additional DM meds on discharge given high A1c (4) HTN (hypertension) Current Visit: Yes Status: Chronic Assessment and Plan: Beta simba and MAE inhibitor as above (5) Tobacco dependence due to cigarettes Current Visit: Yes Status: Acute Assessment and Plan: -Counseled on smoking cessation NRT (6) Morbid obesity with BMI of 45.0-49.9, adult Current Visit: Yes Status: Acute Assessment and Plan: -Lifestyle modifications encouraged (7) DVT prophylaxis Current Visit: Yes Status: Acute Assessment and Plan: hep SQ - Time Spent with Patient Total time spent is greater than 50% in coordination of care (as documented) at patient's floor/unit and/or counseling patient: Plan of Care Discussed with: patient Internal Medicine: Result - Labs CBC & Chem 7: 02/13/18 04:18 02/13/18 04:18 Labs: Short CBC 02/13/18 Range/Units 04:18 WBC 16.1 H (4.3-11.1) K/mcL Hgb 17.5 H (12.9-16.9) g/dL Hct 50.3 H (37.5-50.1) % Plt Count 197 (140-400) K/mcL Neutrophils # 12.3 H (1.6-8.9) K/mcL BMP 02/13/18 04:18 Sodium 133 L Potassium 4.1 Chloride 99 Carbon Dioxide 24 BUN 11 Creatinine 0.59 L Glucose 247 H Calcium 9.2 - ABG Interpretation ABG results: PT/INR, D-dimer PT 9.7 Seconds (9.4-12.1) 02/12/18 00:50 - Impressions Impressions Echocardiogram 02/13/18 10:28 Impressions: Technically adequate exam. LVEF 45-50 %. Mild concentric left ventricular hypertrophy. Mild left ventricular diastolic dysfunction. Normal right ventricular structure and function. Unable to estimate RVSP due to lack of TR jet. Left Ventricular Wall Motion: Rest Echo Findings The mid inferior lateral wall was hypokinetic. All other wall segments showed normal motion. Findings: Study Quality * Technically adequate exam. ECG Findings * Sinus tachycardia. Left Ventricle * LVEF 45-50 %. * Mild concentric left ventricular hypertrophy. * Mild left ventricular diastolic dysfunction. Right Ventricle * Normal right ventricular structure and function. Left Atrium * Normal left atrial size. Right Atrium * Normal right atrial size. Interatrial Septum * No evidence of PFO by color Doppler. Aortic Valve * Trileaflet aortic valve. * Normal aortic valve structure. * No aortic regurgitation. * No aortic stenosis. Mitral Valve * Normal mitral valve structure. * No mitral regurgitation. * No mitral stenosis. Tricuspid Valve * Normal tricuspid valve structure. * No tricuspid regurgitation. * No tricuspid stenosis. * Unable to estimate RVSP due to lack of TR jet. Pulmonic Valve * Normal pulmonic valve structure. * No pulmonic regurgitation. * No pulmonic stenosis. Aorta * Normally sized aortic root. Pericardium * The pericardium appears normal. IVC * Normal IVC dimensions and inspiratory collapse. Pulmonary Artery * Normal visualized portions of the main pulmonary artery. 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
--- NOTE | 2018-02-13 11:31 | Cardiology Progress Note ---
Date of Encounter: 02/13/18 Time of Encounter: 10:00 Assessment and Plan (1) Non-STEMI (non-ST elevated myocardial infarction) Current Visit: Yes Status: Acute Initial troponin 0.99, 23.12, >73.00 No acute ECG changes; T wave inversions ( lateral leads) noted on most recent ECG. Reviewed telemetry strips in ED with Dr. Kevin, do not believe is VT but rather idioventricular rhythm (Rate 90's). Will d/c amiodarone gtt. No prior CV history. 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 TTE: EF 45-50%, mild inferior lateral wall hypokinesis. Continue asa, statin, plavix, ACEi, and BB. Will change lopressor to toprol XL for mildly reduced LVEF and to improve compliance. Discussed with Dr. Thakkar and Dr. Sterling, recommend additional 24 hours inpatient monitoring given large AMI, trop peak >73.00 Cardiac reheb consult. Smoking cessation counseling provided. Will continue to follow. (2) HTN (hypertension) Current Visit: Yes Status: Chronic Hx of HTN; suspect poorly controlled in the outpatient setting d/t medication nonadherence. Continue BB/ACEi. Continue to monitor closely. Qualifiers: Hypertension type: essential hypertension Qualified Code(s): I10 - Essential (primary) hypertension (3) Tobacco dependence due to cigarettes Current Visit: Yes Status: Acute Smoking cessation counseling provided. Discussion w patient/family: The assessment and plan as outlined above was discussed with the patient and/or family members who expressed understanding and agreement. All questions were answered. Thank you for involving us in the care of your patient. Please call with any questions. The patient will be discussed and reviewed with Dr. Thakkar; changes to be made accordingly. Subjective Principal diagnosis: AMI Interval history: Seen and examined. Patient reports he feels great today. No chest pain reported. No issues with right groin cath site other than mild soreness at site. Has been up and ambulating in room without symptoms. Objective Vital Signs, Last 4 Hours Temp Pulse Resp BP Pulse Ox 02/13/18 07:51 98.7 F 113 18 113/85 94 General: Conversant, No Apparent Distress HEENT: Atraumatic, Normocephaly, Mucus Membranes Moist Cardiac: Reg Rate and Rhythm, Normal S1 and S2 Lungs: Normal Breath Sounds Neuro: Alert and responsive Abdomen: Soft Skin: No rashes noted on visualized skin Musculoskeletal: No Chest Wall Tenderness Extremities: No Edema, Normal Pulses Other: right groin cath site: mild bruising at site; no hematoma. +2 DP/PT pulses. Results 02/13/18 04:18 02/13/18 04:18 Lab Results 02/13/18 02/13/18 04:18 04:18 WBC 16.1 H Hgb 17.5 H Hct 50.3 H Plt Count 197 Sodium 133 L Potassium 4.1 Chloride 99 Carbon Dioxide 24 BUN 11 Creatinine 0.59 L Glucose 247 H Calcium 9.2 Magnesium 1.8 Active Medications Acetaminophen (Tylenol) 650 mg PO Q6H PRN PRN Reason: Pain Stop: 08/14/18 15:41 Last Admin: 02/12/18 16:05 Dose: 650 mg Albuterol Sulfate (Albuterol Inhaler) 2 puff IH Q4HR PRN PRN Reason: Shortness Of Breath Stop: 08/15/18 07:50 Aspirin (Aspirin) 81 mg PO DAILY [facility] Stop: 08/14/18 09:01 Last Admin: 02/13/18 08:19 Dose: 81 mg Atorvastatin Calcium (Lipitor) 40 mg PO HS [facility] Stop: 08/14/18 21:01 Last Admin: 02/12/18 20:17 Dose: 40 mg Clopidogrel Bisulfate (Plavix) 75 mg PO DAILY [facility] Stop: 08/15/18 09:01 Last Admin: 02/13/18 08:19 Dose: 75 mg Insulin Human Lispro (Humalog) 0 units SQ HS [facility] PRN Reason: Protocol Stop: 08/15/18 21:01 Insulin Human Lispro (Humalog) 0 units SQ TIDAC [facility] PRN Reason: Protocol Stop: 08/15/18 11:31 Lisinopril (Zestril) 5 mg PO DAILY [facility] PRN Reason: Protocol Stop: 08/14/18 12:01 Last Admin: 02/13/18 08:20 Dose: 5 mg Metoprolol Tartrate (Lopressor) 12.5 mg PO BID [facility] Stop: 08/15/18 21:01 Naloxone HCl (Narcan) 0.4 mg IVP Q2MIN PRN PRN Reason: SEE COMMENTS Stop: 03/28/19 08:17 Nicotine (Nicoderm) 14 mg TD Q24H [facility] PRN Reason: Protocol Stop: 08/14/18 20:01 Last Admin: 02/12/18 20:17 Dose: 14 mg Nitroglycerin (Nitroglycerin) 0.4 mg SL Q5MIN PRN PRN Reason: Chest Pain Stop: 08/14/18 02:06 Last Admin: 02/12/18 02:36 Dose: 0.4 mg Ondansetron HCl (Zofran) 4 mg IVP Q6HR PRN; Protocol PRN Reason: Nausea Stop: 08/14/18 19:25 Last Admin: 02/12/18 19:36 Dose: 4 mg Impressions Echocardiogram 02/13/18 10:28 Impressions: Technically adequate exam. LVEF 45-50 %. Mild concentric left ventricular hypertrophy. Mild left ventricular diastolic dysfunction. Normal right ventricular structure and function. Unable to estimate RVSP due to lack of TR jet. Left Ventricular Wall Motion: Rest Echo Findings The mid inferior lateral wall was hypokinetic. All other wall segments showed normal motion. Findings: Study Quality * Technically adequate exam. ECG Findings * Sinus tachycardia. Left Ventricle * LVEF 45-50 %. * Mild concentric left ventricular hypertrophy. * Mild left ventricular diastolic dysfunction. Right Ventricle * Normal right ventricular structure and function. Left Atrium * Normal left atrial size. Right Atrium * Normal right atrial size. Interatrial Septum * No evidence of PFO by color Doppler. Aortic Valve * Trileaflet aortic valve. * Normal aortic valve structure. * No aortic regurgitation. * No aortic stenosis. Mitral Valve * Normal mitral valve structure. * No mitral regurgitation. * No mitral stenosis. Tricuspid Valve * Normal tricuspid valve structure. * No tricuspid regurgitation. * No tricuspid stenosis. * Unable to estimate RVSP due to lack of TR jet. Pulmonic Valve * Normal pulmonic valve structure. * No pulmonic regurgitation. * No pulmonic stenosis. Aorta * Normally sized aortic root. Pericardium * The pericardium appears normal. IVC * Normal IVC dimensions and inspiratory collapse. Pulmonary Artery * Normal visualized portions of the main pulmonary artery. - Imaging and Cardiology Echo: report reviewed Cardiac cath: report reviewed Other Results: 12 hour tele: avg HR=97 SR. No NSVT or events noted. - EKG Interpretation EKG results cardiology: personally reviewed Consult Discharge Plan - Plan Referrals: Danny Jacob Jr, MD [Primary Care Provider] - 02/19/18 11:00 am Kusum Orourke CNP [Partnered Physician] - (office will call patient at home with follow up appointment)
[2018-02-13] MEDS: *HR* Heparin 5,000 UNIT/ML VIAL SQ SCH ×2 (12:45→22:42)
[2018-02-13] MEDS: Nicotine 14 MG PATCH.TD24 TD SCH (19:48)
[2018-02-13] MEDS ORDERED: Insulin LISPRO 300 UNITS/3 ML VIAL SQ SCH (21:00)
[2018-02-14 04:12] LABS: Hematocrit 48.8 % (37.5-50.1); Hemoglobin 16.9 g/dL (12.9-16.9); Mean Corpuscular HGB Conc 34.6 g/dL (31.6-35.5); Mean Corpuscular Hemoglobin 32.9 pg (28.0-33.3); Mean Corpuscular Volume 94.9 fL (83.0-100.0); Mean Platelet Volume 9.6 fL (9.4-12.4); Platelet Count 182 K/mcL (140-400); Red Blood Count 5.14 M/mcL (4.19-5.50); Red Cell Distribution Width 12.3 % (11.5-14.5)
[2018-02-14 04:27] LABS: BUN/Creatinine Ratio 22 (6-26); Blood Urea Nitrogen 16 mg/dL (6-20); Calcium 9.2 mg/dL (8.6-10.3); Carbon Dioxide 26 mEq/L (23-29); Chloride 99 mEq/L (98-107); Glucose 290 mg/dL (70-105); Osmolality,Calculated 284 (280-300); Potassium 4.2 mEq/L (3.5-5.1); Sodium 131 mEq/L (136-145); eGFR For Non-African Americans > 60 (> 60)
[2018-02-14] MEDS: *HR* Heparin 5,000 UNIT/ML VIAL SQ SCH (05:46)
[2018-02-14] MEDS: Aspirin 81 MG TAB.CHEW PO SCH (07:30)
[2018-02-14] MEDS: Insulin LISPRO 300 UNITS/3 ML VIAL SQ SCH ×2 (07:31→11:44)
[2018-02-14] MEDS ORDERED: *HR* GlipiZIDE XL (24 HR) 2.5 MG TABLET PO SCH (08:00)
--- NOTE | 2018-02-14 08:20 | Internal Med Progress Note ---
Hospitalist Progress Note - Encounter Date of Encounter: 02/14/18 Time of Encounter: 10:15 - Subjective Interval History: Pt seen and examined this morning. Resting comfortably, NAD. Going home today. + eating. +ambulating. ROS: denies headaches, changes in vision or hearing, chest pain, sob, abdominal pain, n/v/d, f/c - Exam Vitals: Temp Pulse Resp BP Pulse Ox 98.2 F 102 18 109/73 93 02/14/18 07:09 02/14/18 07:09 02/14/18 07:09 02/14/18 07:09 02/14/18 07:09 General: WNWD male, NAD HEENT: no sinus tenderness to palpation, no head or neck lymphadenopathy Lungs: CTA b/l, no wheezes or rales Heart: +S1 and s2, no s3 or s4 Abdomen: +bs, no abdominal pain to palpation Extremities: 2/4 pulses in upper and lower extremities - Assessment and Plan (1) Non-STEMI (non-ST elevated myocardial infarction) Current Visit: Yes Status: Acute Assessment and Plan: Elevated trop on admission >73 multiple risk factors including uncontrolled diabetes, htn, tobacco abuse, obesity 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 TTE: EF 45-50%, mild inferior lateral wall hypokinesis. Cardio following, rec Continue asa, statin, plavix, ACEi, and BB and toprol XL cardio also recs prolonged inpt monitoring due to magnitude of trop elevation cardiac rehab consult social work consult to have patient t to find affordable medications (2) Nonsustained ventricular tachycardia Current Visit: Yes Status: Acute Assessment and Plan: episode of nonsustained ventricular tachy observed in ED cardio aware, believe secondary to above amiodarone ggt d/c continue to monitor with tele (3) HTN (hypertension) Current Visit: Yes Status: Chronic Assessment and Plan: laura inhibitor and bb will encourage medication compliance upon d/c (4) Diabetes Current Visit: Yes Status: Acute Assessment and Plan: A1c>10 Hx of medication noncompliance increase to moderate dose sliding scale (5) Tobacco dependence due to cigarettes Current Visit: Yes Status: Acute Assessment and Plan: encouraged smoking cessation (6) Morbid obesity with BMI of 45.0-49.9, adult Current Visit: Yes Status: Acute Assessment and Plan: encouraged lifestyle modifications (7) DVT prophylaxis Current Visit: Yes Status: Acute Assessment and Plan: subQ heparin - Time Spent with Patient Total time spent is greater than 50% in coordination of care (as documented) at patient's floor/unit and/or counseling patient: Internal Medicine: Result - Labs CBC & Chem 7: 02/14/18 03:43 02/14/18 03:43 Labs: Short CBC 02/14/18 Range/Units 03:43 WBC 13.4 H (4.3-11.1) K/mcL Hgb 16.9 (12.9-16.9) g/dL Hct 48.8 (37.5-50.1) % Plt Count 182 (140-400) K/mcL BMP 02/14/18 03:43 Sodium 131 L Potassium 4.2 Chloride 99 Carbon Dioxide 26 BUN 16 Creatinine 0.73 Glucose 290 H Calcium 9.2 - ABG Interpretation ABG results: PT/INR, D-dimer PT 9.7 Seconds (9.4-12.1) 02/12/18 00:50 Consult Discharge Plan - Plan Referrals: Danny Jacob Jr, MD [Primary Care Provider] - 02/19/18 11:00 am Kusum Orourke CNP [Partnered Physician] - (office will call patient at home with follow up appointment) (3) HTN (hypertension) Qualifiers: Hypertension type: essential hypertension Qualified Code(s): I10 - Essential (primary) hypertension (4) Diabetes Qualifiers: Diabetes mellitus type: type 2 Diabetes mellitus mcc insulin use: without mcc use Diabetes mellitus complication status: with hyperglycemia Qualified Code(s): E11.65 - Type 2 diabetes mellitus with hyperglycemia
[2018-02-14] MEDS ORDERED: Metoprolol XL (24 HR) Succ 25 MG TAB.ER.24H PO SCH (09:00)
--- NOTE | 2018-02-14 09:18 | Cardiology Progress Note ---
Date of Encounter: 02/14/18 Time of Encounter: 09:00 Assessment and Plan (1) Non-STEMI (non-ST elevated myocardial infarction) Current Visit: Yes Status: Acute Initial troponin 0.99, 23.12, >73.00 No acute ECG changes; T wave inversions ( lateral leads) noted on most recent ECG. Reviewed telemetry strips in ED with Dr. Kevin, do not believe is VT but rather idioventricular rhythm (Rate 90's). No prior CV history. 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 TTE: EF 45-50%, mild inferior lateral wall hypokinesis. Continue asa, statin, plavix, ACEi, and BB. Continue toprol XL for mildly reduced LVEF and to improve compliance. Importance of uninterrupted DAPT (asa + plavix) discussed in detail with patient ; he is aware of risk ([place], ) with medication non-compliance. Cardiac reheb consult. Smoking cessation counseling provided. No further inpatient recommendations; Cardiology will sign-off. Will coordinate outpatient follow-up with Cardiology in 5-7 days. (2) HTN (hypertension) Current Visit: Yes Status: Chronic Hx of HTN; suspect poorly controlled in the outpatient setting d/t medication nonadherence. Continue BB/ACEi. Continue to monitor closely. Qualifiers: Hypertension type: essential hypertension Qualified Code(s): I10 - Essential (primary) hypertension (3) Tobacco dependence due to cigarettes Current Visit: Yes Status: Acute Smoking cessation counseling provided. Discussion w patient/family: The assessment and plan as outlined above was discussed with the patient and/or family members who expressed understanding and agreement. All questions were answered. Thank you for involving us in the care of your patient. Please call with any questions. The patient will be discussed and reviewed with Dr. Thakkar; changes to be made accordingly. Subjective Principal diagnosis: AMI Interval history: Seen and examined. Patient reports he feels great today. No chest pain reported or any events overnight. No issues with right groin cath site other than mild soreness at site. Has been up and ambulating in room without symptoms. Objective Vital Signs, Last 4 Hours Temp Pulse Resp BP Pulse Ox 02/14/18 07:09 98.2 F 102 18 109/73 93 General: Conversant, No Apparent Distress HEENT: Atraumatic, Normocephaly, Mucus Membranes Moist Cardiac: Reg Rate and Rhythm, Normal S1 and S2 Lungs: Normal Breath Sounds Neuro: Alert and responsive Abdomen: Soft Skin: No rashes noted on visualized skin Musculoskeletal: No Chest Wall Tenderness Extremities: No Edema, Normal Pulses Results 02/14/18 03:43 02/14/18 03:43 Lab Results 02/14/18 02/14/18 03:43 03:43 WBC 13.4 H Hgb 16.9 Hct 48.8 Plt Count 182 Sodium 131 L Potassium 4.2 Chloride 99 Carbon Dioxide 26 BUN 16 Creatinine 0.73 Glucose 290 H Calcium 9.2 Active Medications Acetaminophen (Tylenol) 650 mg PO Q6H PRN PRN Reason: Pain Stop: 08/14/18 15:41 Last Admin: 02/12/18 16:05 Dose: 650 mg Albuterol Sulfate (Albuterol Inhaler) 2 puff IH Q4HR PRN PRN Reason: Shortness Of Breath Stop: 08/15/18 07:50 Aspirin (Aspirin) 81 mg PO DAILY [facility] Stop: 08/14/18 09:01 Last Admin: 02/14/18 07:30 Dose: 81 mg Atorvastatin Calcium (Lipitor) 40 mg PO HS [facility] Stop: 08/14/18 21:01 Last Admin: 02/13/18 20:02 Dose: 40 mg Clopidogrel Bisulfate (Plavix) 75 mg PO DAILY [facility] Stop: 08/15/18 09:01 Last Admin: 02/14/18 07:30 Dose: 75 mg Glipizide (Glucotrol Xl) 5 mg PO 0800 [facility] Stop: 08/16/18 08:01 Last Admin: 02/14/18 08:29 Dose: 5 mg Heparin Sodium (Porcine) (Heparin) 5,000 unit SQ Q8HCO [facility] Stop: 08/15/18 14:01 Last Admin: 02/14/18 05:46 Dose: 5,000 unit Insulin Human Lispro (Humalog) 0 units SQ HS [facility] PRN Reason: Protocol Stop: 08/15/18 21:01 Last Admin: 02/13/18 20:02 Dose: 5 units Insulin Human Lispro (Humalog) 0 units SQ TIDAC [facility] PRN Reason: Protocol Stop: 08/15/18 11:31 Last Admin: 02/14/18 07:31 Dose: 10 units Lisinopril (Zestril) 5 mg PO DAILY [facility] PRN Reason: Protocol Stop: 08/14/18 12:01 Last Admin: 02/14/18 07:30 Dose: 5 mg Metoprolol Succinate (Toprol Xl) 25 mg PO DAILY [facility] Stop: 08/16/18 09:01 Last Admin: 02/14/18 07:30 Dose: 25 mg Naloxone HCl (Narcan) 0.4 mg IVP Q2MIN PRN PRN Reason: SEE COMMENTS Stop: 08/14/18 08:17 Nicotine (Nicoderm) 14 mg TD Q24H [facility] PRN Reason: Protocol Stop: 08/14/18 20:01 Last Admin: 02/13/18 19:48 Dose: Not Given Nitroglycerin (Nitroglycerin) 0.4 mg SL Q5MIN PRN PRN Reason: Chest Pain Stop: 08/14/18 02:06 Last Admin: 02/12/18 02:36 Dose: 0.4 mg Ondansetron HCl (Zofran) 4 mg IVP Q6HR PRN; Protocol PRN Reason: Nausea Stop: 08/14/18 19:25 Last Admin: 02/12/18 19:36 Dose: 4 mg - Imaging and Cardiology Echo: report reviewed Cardiac cath: report reviewed Other Results: 12 hour tele: avg HR=97 SR. No events noted. - EKG Interpretation EKG results cardiology: personally reviewed Consult Discharge Plan - Plan Referrals: Danny Jacob Jr, MD [Primary Care Provider] - 02/19/18 11:00 am Kusum Orourke CNP [Partnered Physician] - (office will call patient at home with follow up appointment)
[2018-02-14 11:16] VITALS: BP 107/83
--- NOTE | 2018-02-14 12:57 | Discharge Summary ---
<Ankita Harry Rika - Last Filed: 02/17/18 07:15> - NOTES TO OUTPATIENT PROVIDER Notes to Outpatient Provider: Follow up with PCP within 2-3 days. Scheduled for cardiology follow up in 1 week. Take medications as directed. Return to the ED if symtoms return or worsen. 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 Matrins is a 42 year old male with a history of HTN, tobacco abuse, uncontrolled T2DM, and a family history of [place] who presented to [facility] ED on due to a dull right sided chest pain while at rest. CXR and CT were negative for acute pathology. EKG showed T wave inversions in the lateral leads. Labwork showed troponing of 0.99 on admission (peaking at >73). Cardiology was consulted. 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 TTE was also performed and revealed EF 45-50%., mild inferior lateral wall hypokinesis. Patient started on aspirin, lipitor, coreg, plavix, and lisinopril. Patient's most recent A1C was 10.8, with admission to medication non-compliance. Lifestyle modification, medication adherence, and smoking cessation were discussed during admission. Patient was discharged in stable condition, with scheduled follow up with Cardiology within 1 week. Discharge discussed with: patient, family Time spent discussing smoking cessation with patient: 3 to 10 minutes - Time Spent with Patient Total time spent providing and/or coordinating discharge services: - Discharge Medications Prescriptions: Aspirin 81 mg PO DAILY #10 tab.chew Atorvastatin [Lipitor] 40 mg PO HS #10 tablet Carvedilol [Coreg] 3.125 mg PO BIDWM #20 tablet Clopidogrel [Plavix] 75 mg PO DAILY #10 tablet GlipiZIDE XL (24 HR) [Glucotrol XL] 5 mg PO 0800 #10 tab Lisinopril [Zestril] 5 mg PO DAILY #10 tablet Home Medications: Albuterol Sulfate [Albuterol Inhaler] 2 puff IH Q4HR PRN 02/12/18 [History] Metformin HCl [Metformin HCl ER] 1,000 mg PO DAILY 02/12/18 [History] Aspirin 81 mg PO DAILY #10 tab.chew 02/14/18 [Rx] Atorvastatin [Lipitor] 40 mg PO HS #10 tablet 02/14/18 [Rx] Carvedilol [Coreg] 3.125 mg PO BIDWM #20 tablet 02/14/18 [Rx] Clopidogrel [Plavix] 75 mg PO DAILY #10 tablet 02/14/18 [Rx] GlipiZIDE XL (24 HR) [Glucotrol XL] 5 mg PO 0800 #10 tab 02/14/18 [Rx] Lisinopril [Zestril] 5 mg PO DAILY #10 tablet 02/14/18 [Rx] Allergies/Adverse Reactions: 3 Allergy/AdvReac Type Severity Reaction Status Date / Time Penicillins Allergy Hives Verified 05/14/15 20:25 Date of admission: 02/12/18 13:50 Primary care physician: Danny Jacob Jr, MD - Constitutional Vitals: Temp Pulse Resp BP Pulse Ox 98.0 F 96 18 107/83 94 02/14/18 11:11 02/14/18 11:11 02/14/18 11:11 02/14/18 11:11 02/14/18 11:11 Exam: General: Alert and oriented, not in acute distress. Cardiovascular: RRR, normal S1 & S2, No JVD Lungs: CTAB, no wheezes/rales Abdomen: Soft, non-tender, no rigidity. R groin with bruising but no obvious hematoma. 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) Follow Up With: Danny Jacob Jr, MD [Primary Care Provider] - 02/19/18 11:00 am Kusum Orourke CNP [Partnered Physician] - (office will call patient at home with follow up appointment) - Diet and Activity Activity: increase activity as tolerated Diet: diabetic diet, low salt diet <Johnny Yi - Last Filed: 02/17/18 07:49> Date of Encounter: 02/17/18 - Discharge Diagnosis (1) Non-STEMI (non-ST elevated myocardial infarction) Status: Acute (2) Nonsustained ventricular tachycardia Status: Acute (3) Diabetes Status: Chronic Qualifiers: Diabetes mellitus type: type 2 Diabetes mellitus 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 Martins is a 42 year old male - Time Spent with Patient Total time spent providing and/or coordinating discharge services: Date of admission: 02/12/18 13:50 Primary care physician: Danny Jacob Jr, MD - Constitutional Vitals: Temp Pulse Resp BP Pulse Ox 98.0 F 96 18 107/83 94 02/14/18 11:11 02/14/18 11:11 02/14/18 11:11 02/14/18 11:11 02/14/18 11:11
--- NOTE | 2018-02-14 16:03 | Event Note ---
Date of Encounter: 02/14/18 Time of Encounter: 10:00 I have seen and examined this pt independently. I have discussed with resident physician Dr Harry regarding the discharge and follow up plan. Please refer her full discharge summary.
--- NOTE | 2018-02-16 09:18 | Electrocardiograph Report ---
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
--- NOTE | 2018-02-16 09:24 | Electrocardiograph Report ---
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
== END 2018-02-14 14:15 | disposition home or self-care (01) | DRG 174 ==
LOC: EMEROOARM 00:04 → 2NNU 00:04 → SUATTDRO 13:50
PROVIDERS: ADMIT Internal Medicine; ATTEND Internal Medicine

== ENCOUNTER 2021-07-26 10:58 | Inpatient (IN) ==
[2021-07-26] MEDS ORDERED: Clindamycin 900 MG/50 ML 900 MG/50 ML IV.SOLN IVPB ONE (11:27)
[2021-07-26] MEDS ORDERED: Aspirin 81 MG TAB.CHEW PO ONE (11:29)
[2021-07-26] MEDS ORDERED: Chlorhexidine Rinse 15 ML MOUTHWASH MM SCH (11:30)
[2021-07-26] MEDS ORDERED: Ringers Solution, Lactated 1,000 ML IVC SCH (11:30)
[2021-07-26] MEDS: carvediloL 6.25 MG TABLET PO SCH ×2 (12:04→17:35)
[2021-07-26] MEDS ORDERED: *HR* DOBUTamine HCl 250 MG/20 ML VIAL ONE (13:12)
[2021-07-26] MEDS ORDERED: *HR* Rocuronium Bromide 50 MG/5 ML VIAL ONE ×4 (13:12→22:25)
[2021-07-26] MEDS ORDERED: *HR* FentaNYL (PF) 1,000 MCG/20 ML VIAL ONE (13:14)
[2021-07-26] MEDS ORDERED: *HR* Etomidate 20 MG/10 ML AMPUL IVP ONE (13:14)
[2021-07-26] MEDS ORDERED: Tranexamic Acid 1,000 MG/10 ML VIAL ONE (13:14)
[2021-07-26] MEDS ORDERED: *HR* Midazolam HCl 5 MG/5 ML VIAL IVP ONE ×3 (13:14→22:20)
[2021-07-26] MEDS ORDERED: Protamine Sulfate 250 MG/25 ML VIAL IVP ONE (13:15)
[2021-07-26] MEDS ORDERED: D5% in Water 250 ML ONE (13:20)
[2021-07-26] MEDS ORDERED: Heparin 15,000 UNIT in 0.9 % Sodium Chloride 500 ML IV ONE ×2 (13:30→20:30)
[2021-07-26] MEDS ORDERED: Cardioplegic Solution w/ Potassium 5 MEQ TH ONE ×5 (13:30→20:15)
[2021-07-26] MEDS ORDERED: Cardioplegic Solution w/ Potassium 20 MEQ TH ONE ×2 (13:30→20:15)
[2021-07-26] MEDS ORDERED: Norepinephrine 4 MG in 0.9 % Sodium Chloride 250 ML IVC PRN ×2 (13:30→20:16)
[2021-07-26 14:24] LABS: ABG Base Excess -1 mEq/L (-2 to 3); ABG Chloride 109 mEq/L (98-107); ABG Glucose 233 mg/dL (60-95); ABG HCO3 27 mEq/L (21-27); ABG Ionized Calcium 1.11 mmol/L (1.15-1.35); ABG Oxygen Saturation 100 % (95-98); ABG PCO2 60 mmHg (35-45); ABG PH 7.26 pH Units (7.32-7.45); ABG PO2 290 mmHg (85-104); ABG TCO2 29 mEq/L (20-26)
[2021-07-26] MEDS: Clindamycin 900 MG/50 ML 900 MG/50 ML IV.SOLN IVPB ONE ×2 (14:35→20:15)
[2021-07-26] MEDS ORDERED: niCARdipine 40 MG/200 ML MLS IVC ONE (15:04)
[2021-07-26] MEDS ORDERED: *HR* Magnesium Sulfate 2 GM/50 ML PIGGYBACK IVPB ONE (15:45)
[2021-07-26] MEDS ORDERED: *HR* Phenylephrine 10 MG/ML VIAL IVC ONE (15:45)
[2021-07-26] MEDS ORDERED: Tranexamic Acid 1,000 MG/10 ML VIAL IR ONE (15:45)
[2021-07-26] MEDS ORDERED: Mannitol 25% vial 12.5 GM/50 ML VIAL IVPB ONE (15:45)
[2021-07-26] MEDS ORDERED: Albumin Human 25% 25 GM/100 ML IV.SOLN IVPB ONE (15:45)
[2021-07-26] MEDS ORDERED: *HR* Heparin 10,000 UNIT/10 ML VIAL IR ONE (15:45)
[2021-07-26] MEDS ORDERED: Lidocaine 2% Syringe 100 MG/5 ML IVP ONE (15:45)
[2021-07-26] MEDS ORDERED: D5% in Water 250 ML IV BAG IV ONE (15:45)
[2021-07-26] MEDS ORDERED: Heparin 1,000 UNITS/500 mL IV.SOLN IR ONE (15:45)
[2021-07-26 15:50] LABS: ABG Base Excess 0 mEq/L (-2 to 3); ABG Chloride 106 mEq/L (98-107); ABG Glucose 286 mg/dL (60-95); ABG HCO3 28 mEq/L (21-27); ABG Ionized Calcium 1.24 mmol/L (1.15-1.35); ABG Oxygen Saturation 99 % (95-98); ABG PCO2 59 mmHg (35-45); ABG PH 7.29 pH Units (7.32-7.45); ABG PO2 175 mmHg (85-104); ABG TCO2 30 mEq/L (20-26)
[2021-07-26 16:18] LABS: ABG Base Excess -1 mEq/L (-2 to 3); ABG Chloride 101 mEq/L (98-107); ABG Glucose 225 mg/dL (60-95); ABG HCO3 27 mEq/L (21-27); ABG Ionized Calcium 1.02 mmol/L (1.15-1.35); ABG Oxygen Saturation 100 % (95-98); ABG PCO2 59 mmHg (35-45); ABG PH 7.27 pH Units (7.32-7.45); ABG PO2 502 mmHg (85-104); ABG TCO2 29 mEq/L (20-26)
[2021-07-26] MEDS ORDERED: Amiodarone Premix 360 MG/200 ML BAG IVC ONE ×2 (16:43→18:30)
[2021-07-26] MEDS ORDERED: *HR* Amiodarone 150 MG/3 ML VIAL IVPB ONE (16:43)
[2021-07-26 16:49] LABS: ABG Base Excess 0 mEq/L (-2 to 3); ABG Chloride 103 mEq/L (98-107); ABG Glucose 286 mg/dL (60-95); ABG HCO3 26 mEq/L (21-27); ABG Ionized Calcium 1.08 mmol/L (1.15-1.35); ABG Oxygen Saturation 100 % (95-98); ABG PCO2 47 mmHg (35-45); ABG PH 7.35 pH Units (7.32-7.45); ABG PO2 400 mmHg (85-104); ABG TCO2 28 mEq/L (20-26)
[2021-07-26 17:23] LABS: ABG Base Excess 1 mEq/L (-2 to 3); ABG Chloride 105 mEq/L (98-107); ABG Glucose 240 mg/dL (60-95); ABG HCO3 26 mEq/L (21-27); ABG Oxygen Saturation 100 % (95-98); ABG PCO2 42 mmHg (35-45); ABG PO2 476 mmHg (85-104); ABG TCO2 28 mEq/L (20-26)
[2021-07-26] MEDS ORDERED: *HR* Dextrose 50 % in Water (Syg) 50 ML SYRINGE IVP PRN (17:42)
[2021-07-26] MEDS ORDERED: *HR* FentaNYL (PF) 100 MCG/2 ML VIAL IVP PRN (17:42)
[2021-07-26] MEDS ORDERED: Acetaminophen 325 MG TABLET PO PRN (17:42)
[2021-07-26] MEDS ORDERED: Ondansetron 4 MG/2 ML VIAL IVP PRN (17:42)
[2021-07-26] MEDS ORDERED: *HR* OxyCODONE/APAP 5/325 TABLET PO PRN (17:42)
[2021-07-26] MEDS ORDERED: Acetaminophen 650 MG RECTAL SUPP RC PRN (17:42)
[2021-07-26] MEDS ORDERED: Naloxone 0.4 MG/ML INJ IVP PRN (17:42)
[2021-07-26] MEDS ORDERED: Calcium Gluconate 1gm/50mL 1 GM/50 ML BAG IVPB PRN (17:42)
[2021-07-26] MEDS ORDERED: 0.9 % Sodium Chloride w KCl 20 MEQ/1,000 ML MLS IVC SCH (17:45)
[2021-07-26] MEDS ORDERED: Albumin Human 5% 25.0 GM/500 ML IV.SOLN ONE (18:18)
[2021-07-26] MEDS: Insulin Regular, Human 100 UNIT/ML IV PRN ×2 (18:20→19:10)
[2021-07-26] MEDS: Norepinephrine 4 MG/254 ML IV.SOLN IVC SCH (18:20)
[2021-07-26 18:45] LABS: ABG Base Excess 1 mEq/L (-2 to 3); ABG HCO3 28 mEq/L (21-27); ABG Oxygen Saturation 92 % (95-98); ABG PCO2 55 mmHg (35-45); ABG PH 7.31 pH Units (7.32-7.45); ABG PO2 72 mmHg (85-104); ABG TCO2 30 mEq/L (20-26); Blood Gas Modality AF; Blood Gas Pressure Support 5 cm H2O; Blood Gas VT 650 cc
[2021-07-26 18:48] LABS: Basophils % 0.2 %; Eosinophils # 0.3 K/mcL (0.0-0.6); Eosinophils % 2.1 %; Hematocrit 41.4 % (37.5-50.1); Hemoglobin 14.3 g/dL (12.9-16.9); Immature Granulocytes % 0.6 % (0-4); Lymphocytes # 1.7 K/mcL (0.6-4.6); Lymphocytes % 10.7 %; Mean Corpuscular HGB Conc 34.5 g/dL (31.6-35.5); Mean Corpuscular Hemoglobin 33.4 pg (28.0-33.3); Mean Corpuscular Volume 96.7 fL (83.0-100.0); Mean Platelet Volume 9.3 fL (9.4-12.4); Monocytes # 0.7 K/mcL (0.0-1.3); Monocytes % 4.4 %; Neutrophils # 13.3 K/mcL (1.6-8.9); Platelet Count 193 K/mcL (140-400); Red Blood Count 4.28 M/mcL (4.19-5.50); White Blood Count 16.2 K/mcL (4.3-11.1)
[2021-07-26 18:55] LABS: INR 1.1; Prothrombin Time 12.2 Seconds (9.4-12.1)
[2021-07-26] MEDS: Albumin Human 5% 12.5 GM/250 ML IV.SOLN IVPB PRN ×3 (18:55→19:50)
[2021-07-26] MEDS ORDERED: Ringers Solution, Lactated 1,000 ML ONE (19:32)
[2021-07-26] MEDS ORDERED: 0.9 % Sodium Chloride 500 ML ONE ×3 (19:39→20:07)
[2021-07-26] MEDS ORDERED: 0.9 % Sodium Chloride 1,000 ML ONE (19:56)
[2021-07-26] MEDS ORDERED: Phenylephrine 10 MG in 0.9 % Sodium Chloride 250 ML IVC SCH (20:01)
[2021-07-26] MEDS ORDERED: *HR* FentaNYL (PF) 250 MCG/5 ML VIAL ONE ×2 (20:23→22:23)
[2021-07-26] MEDS ORDERED: EPINEPHrine 1 MG/ML VIAL ONE (20:29)
[2021-07-26] MEDS ORDERED: Calcium Gluconate 1,000 MG/10 ML VIAL ONE (20:34)
[2021-07-26] MEDS ORDERED: Sodium Bicarbonate 50 MEQ/50 ML VIAL ONE ×3 (20:38→21:07)
[2021-07-26 20:40] LABS: ABG Base Excess 0 mEq/L (-2 to 3); ABG Chloride 106 mEq/L (98-107); ABG Glucose 230 mg/dL (60-95); ABG HCO3 26 mEq/L (21-27); ABG Ionized Calcium 1.12 mmol/L (1.15-1.35); ABG Oxygen Saturation 97 % (95-98); ABG PCO2 45 mmHg (35-45); ABG PH 7.37 pH Units (7.32-7.45); ABG PO2 90 mmHg (85-104); ABG TCO2 27 mEq/L (20-26)
[2021-07-26 20:57] LABS: BUN/Creatinine Ratio 23 (6-26); Blood Urea Nitrogen 14 mg/dL (6-20); Calcium 8.2 mg/dL (8.6-10.3); Carbon Dioxide 26 mEq/L (23-29); Chloride 109 mEq/L (98-107); Glucose 192 mg/dL (70-105); Magnesium 2.2 mg/dL (1.6-2.6); Osmolality,Calculated 300 (280-300); Potassium 3.6 mEq/L (3.5-5.1); Sodium 142 mEq/L (136-145); eGFR For African Americans > 60 (> 60); eGFR For Non-African Americans > 60 (> 60)
[2021-07-26 21:02] LABS: ABG Base Excess -13 mEq/L (-2 to 3); ABG Chloride 113 mEq/L (98-107); ABG Glucose 303 mg/dL (60-95); ABG HCO3 15 mEq/L (21-27); ABG Ionized Calcium 1.04 mmol/L (1.15-1.35); ABG Oxygen Saturation 96 % (95-98); ABG PCO2 47 mmHg (35-45); ABG PH 7.11 pH Units (7.32-7.45); ABG PO2 112 mmHg (85-104); ABG TCO2 17 mEq/L (20-26)
[2021-07-26 21:17] LABS: ABG Base Excess -7 mEq/L (-2 to 3); ABG Chloride 109 mEq/L (98-107); ABG Glucose 364 mg/dL (60-95); ABG HCO3 20 mEq/L (21-27); ABG Ionized Calcium 1.24 mmol/L (1.15-1.35); ABG Oxygen Saturation 100 % (95-98); ABG PCO2 46 mmHg (35-45); ABG PH 7.25 pH Units (7.32-7.45); ABG PO2 208 mmHg (85-104); ABG TCO2 22 mEq/L (20-26)
[2021-07-26 21:35] LABS: Basophils % 0.2 %; Eosinophils # 0.2 K/mcL (0.0-0.6); Eosinophils % 1.3 %; Hematocrit 23.7 % (37.5-50.1); Immature Granulocytes % 1.4 % (0-4); Immature Platelets 3.8 % (1.1-6.1); Lymphocytes # 1.6 K/mcL (0.6-4.6); Lymphocytes % 13.6 %; Mean Corpuscular HGB Conc 33.3 g/dL (31.6-35.5); Mean Corpuscular Hemoglobin 31.9 pg (28.0-33.3); Mean Corpuscular Volume 95.6 fL (83.0-100.0); Mean Platelet Volume 10.1 fL (9.4-12.4); Monocytes # 1.3 K/mcL (0.0-1.3); Red Blood Count 2.48 M/mcL (4.19-5.50); Segmented Neutrophils % 72.5 %; White Blood Count 11.4 K/mcL (4.3-11.1)
[2021-07-26 21:36] LABS: ABG Base Excess -4 mEq/L (-2 to 3); ABG Chloride 108 mEq/L (98-107); ABG Glucose 350 mg/dL (60-95); ABG HCO3 23 mEq/L (21-27); ABG Ionized Calcium 1.31 mmol/L (1.15-1.35); ABG Oxygen Saturation 100 % (95-98); ABG PCO2 45 mmHg (35-45); ABG PH 7.31 pH Units (7.32-7.45); ABG PO2 252 mmHg (85-104); ABG TCO2 24 mEq/L (20-26)
[2021-07-26 21:39] LABS: INR 1.6
[2021-07-26 21:42] LABS: Activated Partial Thrombo Time 42.7 Seconds (26.0-36.0)
[2021-07-26 21:48] LABS: BUN/Creatinine Ratio 18 (6-26); Blood Urea Nitrogen 13 mg/dL (6-20); Calcium 8.1 mg/dL (8.6-10.3); Carbon Dioxide 22 mEq/L (23-29); Chloride 111 mEq/L (98-107); Glucose 355 mg/dL (70-105); Osmolality,Calculated 310 (280-300); Potassium 4.2 mEq/L (3.5-5.1); Sodium 143 mEq/L (136-145); eGFR For African Americans > 60 (> 60); eGFR For Non-African Americans > 60 (> 60)
[2021-07-26 21:54] LABS: Neutrophils # 8.3 K/mcL (1.6-8.9)
[2021-07-26 21:57] LABS: Hemoglobin 7.9 g/dL (12.9-16.9)
[2021-07-26 21:58] LABS: Platelet Count 86 K/mcL (140-400); Platelet Estimate Marked Decrease (Normal)
[2021-07-26 21:59] LABS: Rouleaux Present (Not Present)
[2021-07-26 22:32] LABS: ABG Base Excess -3 mEq/L (-2 to 3); ABG Chloride 110 mEq/L (98-107); ABG Glucose 306 mg/dL (60-95); ABG HCO3 22 mEq/L (21-27); ABG Ionized Calcium 1.29 mmol/L (1.15-1.35); ABG Oxygen Saturation 100 % (95-98); ABG PCO2 40 mmHg (35-45); ABG PH 7.36 pH Units (7.32-7.45); ABG PO2 251 mmHg (85-104); ABG TCO2 24 mEq/L (20-26)
[2021-07-26] MEDS: FentaNYL (PF) 1,000 MCG/100 ML IV.SOLN IVC SCH (23:35)
[2021-07-26] MEDS: Midazolam HCl 50 MG/100 ML IV.SOLN IVC SCH (23:35)
[2021-07-26 23:43] LABS: ABG Base Excess 0 mEq/L (-2 to 3); ABG HCO3 26 mEq/L (21-27); ABG Oxygen Saturation 93 % (95-98); ABG PCO2 48 mmHg (35-45); ABG PH 7.34 pH Units (7.32-7.45); ABG PO2 74 mmHg (85-104); ABG TCO2 27 mEq/L (20-26); Blood Gas Modality AF; Blood Gas VT 650 cc
[2021-07-26 23:53] LABS: Basophils % 0.3 %; Eosinophils # 0.1 K/mcL (0.0-0.6); Eosinophils % 0.5 %; Hematocrit 31.5 % (37.5-50.1); Lymphocytes # 1.3 K/mcL (0.6-4.6); Lymphocytes % 10.9 %; Mean Corpuscular Hemoglobin 31.6 pg (28.0-33.3); Mean Corpuscular Volume 92.9 fL (83.0-100.0); Mean Platelet Volume 9.8 fL (9.4-12.4); Monocytes # 0.9 K/mcL (0.0-1.3); Monocytes % 7.4 %; Neutrophils # 9.3 K/mcL (1.6-8.9); Platelet Count 101 K/mcL (140-400); Red Blood Count 3.39 M/mcL (4.19-5.50); Red Cell Distribution Width 13.3 % (11.5-14.5); Segmented Neutrophils % 79.9 %; White Blood Count 11.7 K/mcL (4.3-11.1)
[2021-07-26 23:58] LABS: Hemoglobin 10.7 g/dL (12.9-16.9)
[2021-07-27 00:04] LABS: INR 1.3; Prothrombin Time 14.6 Seconds (9.4-12.1)
[2021-07-27 00:06] LABS: Activated Partial Thrombo Time 29.4 Seconds (26.0-36.0)
[2021-07-27 00:09] LABS: BUN/Creatinine Ratio 21 (6-26); Blood Urea Nitrogen 12 mg/dL (6-20); Calcium 8.6 mg/dL (8.6-10.3); Carbon Dioxide 26 mEq/L (23-29); Chloride 114 mEq/L (98-107); Glucose 214 mg/dL (70-105); Magnesium 1.5 mg/dL (1.6-2.6); Osmolality,Calculated 302 (280-300); Potassium 4.6 mEq/L (3.5-5.1); Sodium 143 mEq/L (136-145); eGFR For African Americans > 60 (> 60); eGFR For Non-African Americans > 60 (> 60)
[2021-07-27] MEDS: Metoclopramide 10 MG/2 ML VIAL IVP SCH ×5 (00:09→18:17)
[2021-07-27] MEDS: Ketorolac 30 MG/ML VIAL IVP SCH ×5 (00:10→18:17)
[2021-07-27] MEDS: Furosemide 20 MG/2 ML VIAL IVP SCH ×2 (00:13→08:34)
[2021-07-27] MEDS: Pantoprazole 40 MG VIAL IVP SCH ×2 (00:13→08:33)
[2021-07-27] MEDS: Clindamycin 900 MG/50 ML 900 MG/50 ML IV.SOLN IVPB SCH ×2 (00:15→08:35)
[2021-07-27] MEDS: Albumin Human 5% 12.5 GM/250 ML IV.SOLN IVPB PRN (00:20)
[2021-07-27] MEDS ORDERED: 0.9 % Sodium Chloride 250 ML ONE (00:30)
[2021-07-27] MEDS: Amiodarone Premix 360 MG/200 ML BAG IVC SCH ×4 (00:46→22:20)
[2021-07-27] MEDS ORDERED: Insulin Human Regular 10 UNIT in 0.9 % Sodium Chloride 10 ML IV ONE (00:48)
[2021-07-27] MEDS: Norepinephrine 4 MG/254 ML IV.SOLN IVC SCH ×6 (01:19→19:32)
[2021-07-27] MEDS: 0.9 % Sodium Chloride 1,000 ML IVC SCH ×2 (02:16→22:20)
[2021-07-27 04:13] LABS: ABG Base Excess 4 mEq/L (-2 to 3); ABG HCO3 30 mEq/L (21-27); ABG Oxygen Saturation 97 % (95-98); ABG PCO2 53 mmHg (35-45); ABG PH 7.36 pH Units (7.32-7.45); ABG PO2 95 mmHg (85-104); ABG TCO2 31 mEq/L (20-26); Blood Gas Modality AF; Blood Gas VT 650 cc
[2021-07-27] MEDS: niCARdipine 20 MG/200 ML MLS IVC SCH ×4 (04:21→22:36)
[2021-07-27] MEDS: Phenylephrine 10 MG in 0.9 % Sodium Chloride 250 ML IVC SCH ×2 (04:22→22:37)
[2021-07-27] MEDS: Chlorhexidine Rinse 15 ML MOUTHWASH MM SCH ×3 (04:23→20:31)
[2021-07-27 04:29] LABS: Basophils % 0.3 %; Eosinophils % 0.5 %; Mean Corpuscular Volume 92.4 fL (83.0-100.0)
[2021-07-27 04:31] LABS: Hematocrit 26.7 % (37.5-50.1); Immature Granulocytes % 0.6 % (0-4); Immature Platelets 4.1 % (1.1-6.1); Lymphocytes % 12.4 %; Mean Corpuscular HGB Conc 33.7 g/dL (31.6-35.5); Mean Corpuscular Hemoglobin 31.1 pg (28.0-33.3); Mean Platelet Volume 9.9 fL (9.4-12.4); Monocytes # 0.8 K/mcL (0.0-1.3); Monocytes % 10.2 %; Neutrophils # 5.9 K/mcL (1.6-8.9); Platelet Count 96 K/mcL (140-400); Red Blood Count 2.89 M/mcL (4.19-5.50); Red Cell Distribution Width 13.6 % (11.5-14.5); White Blood Count 7.8 K/mcL (4.3-11.1)
[2021-07-27 04:41] LABS: BUN/Creatinine Ratio 18 (6-26); Blood Urea Nitrogen 11 mg/dL (6-20); Calcium 8.4 mg/dL (8.6-10.3); Carbon Dioxide 29 mEq/L (23-29); Chloride 113 mEq/L (98-107); Glucose 129 mg/dL (70-105); Magnesium 1.8 mg/dL (1.6-2.6); Osmolality,Calculated 299 (280-300); Potassium 3.9 mEq/L (3.5-5.1); Sodium 144 mEq/L (136-145); eGFR For African Americans > 60 (> 60); eGFR For Non-African Americans > 60 (> 60)
[2021-07-27] MEDS ORDERED: carvediloL 6.25 MG TABLET PO SCH (08:00)
[2021-07-27] MEDS ORDERED: Amiodarone Premix 150 MG/100 ML BAG IVPB ONE (08:26)
[2021-07-27] MEDS: carvediloL 6.25 MG TABLET PO SCH (08:34)
[2021-07-27] MEDS ORDERED: Aspirin Enteric Coated 81 MG Tablet PO SCH (09:00)
[2021-07-27] MEDS: FentaNYL (PF) 1,000 MCG/100 ML IV.SOLN IVC SCH ×2 (09:27→21:15)
[2021-07-27] MEDS: Midazolam HCl 50 MG/100 ML IV.SOLN IVC SCH (10:35)
[2021-07-27 10:56] LABS: ABG Base Excess 3 mEq/L (-2 to 3); ABG HCO3 29 mEq/L (21-27); ABG Oxygen Saturation 92 % (95-98); ABG PCO2 50 mmHg (35-45); ABG PH 7.37 pH Units (7.32-7.45); ABG PO2 67 mmHg (85-104); ABG TCO2 30 mEq/L (20-26); Blood Gas VT 450 cc
[2021-07-27] MEDS: Artificial Tears SOLN 15 ML BOTTLE BOTH EYES SCH ×3 (12:18→20:31)
[2021-07-27 15:01] LABS: BUN/Creatinine Ratio 15 (6-26); Blood Urea Nitrogen 10 mg/dL (6-20); Calcium 7.7 mg/dL (8.6-10.3); Carbon Dioxide 29 mEq/L (23-29); Chloride 113 mEq/L (98-107); Glucose 150 mg/dL (70-105); Magnesium 2.2 mg/dL (1.6-2.6); Osmolality,Calculated 302 (280-300); Potassium 3.7 mEq/L (3.5-5.1); Sodium 145 mEq/L (136-145); eGFR For African Americans > 60 (> 60); eGFR For Non-African Americans > 60 (> 60)
[2021-07-27 16:50] LABS: ABG Base Excess 3 mEq/L (-2 to 3); ABG HCO3 28 mEq/L (21-27); ABG Oxygen Saturation 90 % (95-98); ABG PCO2 48 mmHg (35-45); ABG PH 7.38 pH Units (7.32-7.45); ABG PO2 61 mmHg (85-104); ABG TCO2 30 mEq/L (20-26); Blood Gas VT 450 cc
[2021-07-27 20:10] LABS: ABG Base Excess 2 mEq/L (-2 to 3); ABG HCO3 27 mEq/L (21-27); ABG Oxygen Saturation 92 % (95-98); ABG PCO2 45 mmHg (35-45); ABG PH 7.39 pH Units (7.32-7.45); ABG PO2 66 mmHg (85-104); ABG TCO2 29 mEq/L (20-26); Blood Gas Modality AF; Blood Gas VT 450 cc
[2021-07-27] MEDS ORDERED: Heparin 1,000 UNITS/500 mL 500 ML ONE (20:18)
[2021-07-27] MEDS: Docusate Oral Soln 100 MG/10 ML UDC GTUBE SCH (20:31)
[2021-07-27] MEDS ORDERED: 0.9 % Sodium Chloride 500 ML IVC ONE (22:19)
[2021-07-28] MEDS: Artificial Tears SOLN 15 ML BOTTLE BOTH EYES SCH ×7 (00:14→23:40)
[2021-07-28] MEDS: Metoclopramide 10 MG/2 ML VIAL IVP SCH ×5 (00:15→23:40)
[2021-07-28 00:49] LABS: ABG Base Excess 1 mEq/L (-2 to 3); ABG HCO3 27 mEq/L (21-27); ABG Oxygen Saturation 86 % (95-98); ABG PCO2 48 mmHg (35-45); ABG PH 7.36 pH Units (7.32-7.45); ABG PO2 54 mmHg (85-104); ABG TCO2 29 mEq/L (20-26); Blood Gas Modality AF; Blood Gas VT 450 cc
[2021-07-28 00:50] LABS: BUN/Creatinine Ratio 16 (6-26); Blood Urea Nitrogen 9 mg/dL (6-20); Calcium 7.5 mg/dL (8.6-10.3); Carbon Dioxide 27 mEq/L (23-29); Chloride 113 mEq/L (98-107); Glucose 147 mg/dL (70-105); Magnesium 1.9 mg/dL (1.6-2.6); Osmolality,Calculated 299 (280-300); Potassium 3.7 mEq/L (3.5-5.1); Sodium 144 mEq/L (136-145); eGFR For African Americans > 60 (> 60); eGFR For Non-African Americans > 60 (> 60)
[2021-07-28] MEDS: Potassium Chloride 40 MEQ/200 ML BAG IVPB PRN (01:17)
[2021-07-28] MEDS: niCARdipine 20 MG/200 ML MLS IVC SCH ×4 (02:39→19:45)
[2021-07-28] MEDS: Calcium Gluconate 1gm/50mL 1 GM/50 ML BAG IVPB PRN ×2 (02:42→15:44)
[2021-07-28 04:10] LABS: ABG Base Excess 2 mEq/L (-2 to 3); ABG HCO3 28 mEq/L (21-27); ABG Oxygen Saturation 97 % (95-98); ABG PCO2 48 mmHg (35-45); ABG PH 7.37 pH Units (7.32-7.45); ABG PO2 93 mmHg (85-104); ABG TCO2 29 mEq/L (20-26); Blood Gas Modality AF; Blood Gas VT 450 cc
[2021-07-28] MEDS: Amiodarone Premix 360 MG/200 ML BAG IVC SCH ×4 (04:11→22:20)
[2021-07-28 04:25] LABS: ABG Ionized Calcium 1.19 mmol/L (1.15-1.35)
[2021-07-28 04:37] LABS: Basophils % 0.3 %
[2021-07-28 04:39] LABS: Eosinophils # 0.1 K/mcL (0.0-0.6); Eosinophils % 0.9 %; Hematocrit 23.9 % (37.5-50.1); Hemoglobin 7.8 g/dL (12.9-16.9); Immature Granulocytes % 0.4 % (0-4); Immature Platelets 3.3 % (1.1-6.1); Lymphocytes # 1.1 K/mcL (0.6-4.6); Lymphocytes % 14.1 %; Mean Corpuscular HGB Conc 32.6 g/dL (31.6-35.5); Mean Corpuscular Hemoglobin 31.1 pg (28.0-33.3); Mean Corpuscular Volume 95.2 fL (83.0-100.0); Mean Platelet Volume 10.4 fL (9.4-12.4); Monocytes # 0.7 K/mcL (0.0-1.3); Monocytes % 9.5 %; Neutrophils # 5.8 K/mcL (1.6-8.9); Nucleated Red Blood Cells 0.4 /100 WBC (0); Red Blood Count 2.51 M/mcL (4.19-5.50); Red Cell Distribution Width 14.6 % (11.5-14.5); Segmented Neutrophils % 74.8 %; White Blood Count 7.7 K/mcL (4.3-11.1)
[2021-07-28 04:47] LABS: Platelet Count 92 K/mcL (140-400)
[2021-07-28 04:57] LABS: BUN/Creatinine Ratio 15 (6-26); Blood Urea Nitrogen 9 mg/dL (6-20); Calcium 7.6 mg/dL (8.6-10.3); Carbon Dioxide 29 mEq/L (23-29); Chloride 113 mEq/L (98-107); Glucose 145 mg/dL (70-105); Magnesium 2.2 mg/dL (1.6-2.6); Osmolality,Calculated 299 (280-300); Sodium 144 mEq/L (136-145); eGFR For African Americans > 60 (> 60); eGFR For Non-African Americans > 60 (> 60)
[2021-07-28] MEDS: FentaNYL (PF) 1,000 MCG/100 ML IV.SOLN IVC SCH ×2 (05:52→16:28)
[2021-07-28] MEDS: Midazolam HCl 50 MG/100 ML IV.SOLN IVC SCH ×2 (05:52→20:33)
[2021-07-28 07:42] LABS: ABG Base Excess 3 mEq/L (-2 to 3); ABG HCO3 29 mEq/L (21-27); ABG Oxygen Saturation 93 % (95-98); ABG PCO2 51 mmHg (35-45); ABG PH 7.36 pH Units (7.32-7.45); ABG PO2 69 mmHg (85-104); ABG TCO2 30 mEq/L (20-26); Blood Gas Modality ASSIST CONTROL; Blood Gas VT 450 cc
[2021-07-28] MEDS: Aspirin 81 MG TAB.CHEW GTUBE SCH (08:23)
[2021-07-28] MEDS: Pantoprazole 40 MG VIAL IVP SCH (08:23)
[2021-07-28] MEDS: Chlorhexidine Rinse 15 ML MOUTHWASH MM SCH ×2 (08:23→19:52)
[2021-07-28] MEDS: Docusate Oral Soln 100 MG/10 ML UDC GTUBE SCH ×2 (08:23→19:52)
[2021-07-28 08:24] LABS: Hematocrit 24.6 % (37.5-50.1); Hemoglobin 7.9 g/dL (12.9-16.9)
[2021-07-28] MEDS ORDERED: 0.9 % Sodium Chloride 250 ML ONE (09:12)
[2021-07-28] MEDS ORDERED: *HR* Rocuronium Bromide 50 MG/5 ML VIAL ONE ×2 (10:20→11:19)
[2021-07-28] MEDS ORDERED: Clindamycin 900 MG/50 ML 900 MG/50 ML IV.SOLN IVPB ONE (10:21)
[2021-07-28] MEDS ORDERED: *HR* FentaNYL (PF) 250 MCG/5 ML VIAL ONE (10:21)
[2021-07-28 11:09] LABS: ABG Base Excess -1 mEq/L (-2 to 3); ABG Chloride 112 mEq/L (98-107); ABG Glucose 209 mg/dL (60-95); ABG HCO3 25 mEq/L (21-27); ABG Ionized Calcium 1.14 mmol/L (1.15-1.35); ABG Oxygen Saturation 90 % (95-98); ABG PCO2 46 mmHg (35-45); ABG PH 7.33 pH Units (7.32-7.45); ABG PO2 62 mmHg (85-104); ABG TCO2 26 mEq/L (20-26)
[2021-07-28] MEDS ORDERED: Calcium Gluconate 1,000 MG/10 ML VIAL ONE (11:09)
[2021-07-28 11:50] LABS: ABG Base Excess -3 mEq/L (-2 to 3); ABG Chloride 113 mEq/L (98-107); ABG Glucose 210 mg/dL (60-95); ABG HCO3 22 mEq/L (21-27); ABG Ionized Calcium 1.12 mmol/L (1.15-1.35); ABG Oxygen Saturation 86 % (95-98); ABG PCO2 38 mmHg (35-45); ABG PH 7.37 pH Units (7.32-7.45); ABG PO2 53 mmHg (85-104); ABG TCO2 23 mEq/L (20-26)
[2021-07-28 12:33] LABS: ABG Base Excess -2 mEq/L (-2 to 3); ABG HCO3 25 mEq/L (21-27); ABG Oxygen Saturation 81 % (95-98); ABG PCO2 50 mmHg (35-45); ABG PO2 50 mmHg (85-104); ABG TCO2 26 mEq/L (20-26); Blood Gas Modality ASSIST CONTROL; Blood Gas VT 450 cc
[2021-07-28] MEDS ORDERED: Bumetanide 1 MG/4 ML VIAL IVP ONE (12:38)
[2021-07-28 14:10] LABS: Creatine Kinase 206 Units/L (30-223); Uric Acid 4.9 mg/dL (2.3-7.6)
[2021-07-28 14:28] LABS: Mean Corpuscular Volume 96.1 fL (83.0-100.0); Red Cell Distribution Width 15.4 % (11.5-14.5)
[2021-07-28 14:29] LABS: Hematocrit 29.7 % (37.5-50.1); Hemoglobin 9.5 g/dL (12.9-16.9); Mean Corpuscular Hemoglobin 30.7 pg (28.0-33.3); Mean Platelet Volume 10.2 fL (9.4-12.4); Red Blood Count 3.09 M/mcL (4.19-5.50); White Blood Count 8.3 K/mcL (4.3-11.1)
[2021-07-28 14:41] LABS: BUN/Creatinine Ratio 13 (6-26); Blood Urea Nitrogen 9 mg/dL (6-20); Calcium 7.9 mg/dL (8.6-10.3); Carbon Dioxide 26 mEq/L (23-29); Chloride 110 mEq/L (98-107); Glucose 217 mg/dL (70-105); Magnesium 1.7 mg/dL (1.6-2.6); Osmolality,Calculated 299 (280-300); Potassium 4.1 mEq/L (3.5-5.1); Sodium 142 mEq/L (136-145); eGFR For African Americans > 60 (> 60); eGFR For Non-African Americans > 60 (> 60)
[2021-07-28] MEDS: 0.9 % Sodium Chloride 1,000 ML IVC SCH (18:16)
[2021-07-28 18:28] LABS: Sodium, Urine 102.4 mEq/L
[2021-07-28 18:31] LABS: Bilirubin,Urine Negative (Negative); Blood,Urine Moderate (Negative); Clarity,Urine Turbid (Clear); Color,Urine Light-Yellow (Yellow); Glucose,Urine (UA) >=1000 mg/dL (Normal); Hyaline Casts,Urine Few per lpf (None Seen); Ketones,Urine 10 mg/dL (Negative); Leukocyte Esterase,Urine Negative (Negative); Mucus,Urine Moderate per lpf (None-Few); Nitrite,Urine Negative (Negative); PH,Urine 5.5 pH Units (5.0-8.0); Protein,Urine Negative (Neg-Trace); RBC,Urine 30-50 per hpf (0-3); Specific Gravity,Urine 1.021 (1.010-1.025); Squamous Epithelial Cell,Urine Few per hpf (None-Few); Uric Acid Crystals,Urine Present per hpf; Urobilinogen,Urine Normal (Normal)
[2021-07-28 18:34] LABS: ABG Base Excess 2 mEq/L (-2 to 3); ABG HCO3 27 mEq/L (21-27); ABG Oxygen Saturation 98 % (95-98); ABG PCO2 44 mmHg (35-45); ABG PO2 109 mmHg (85-104); ABG TCO2 28 mEq/L (20-26); Blood Gas Modality PC
[2021-07-28] MEDS: Phenylephrine 10 MG in 0.9 % Sodium Chloride 250 ML IVC SCH (19:50)
[2021-07-28] MEDS: Norepinephrine 4 MG/254 ML IV.SOLN IVC SCH (20:33)
[2021-07-29] MEDS ORDERED: Albumin 25% 25gram/100mL 25 GM/100 ML IV.SOLN IVPB ONE (00:10)
[2021-07-29] MEDS: FentaNYL (PF) 1,000 MCG/100 ML IV.SOLN IVC SCH ×2 (02:06→12:01)
[2021-07-29] MEDS: niCARdipine 20 MG/200 ML MLS IVC SCH ×6 (02:54→23:01)
[2021-07-29 03:27] LABS: Basophils % 0.1 %; Hematocrit 22.7 % (37.5-50.1); Immature Granulocytes % 0.6 % (0-4); Lymphocytes % 10.3 %; Mean Corpuscular Hemoglobin 30.7 pg (28.0-33.3); Mean Platelet Volume 10.2 fL (9.4-12.4); Monocytes # 0.8 K/mcL (0.0-1.3); Monocytes % 8.2 %; Neutrophils # 8.1 K/mcL (1.6-8.9); Nucleated Red Blood Cells 0.2 /100 WBC (0); Platelet Count 109 K/mcL (140-400); Red Blood Count 2.44 M/mcL (4.19-5.50); Segmented Neutrophils % 80.8 %
[2021-07-29 03:32] LABS: Hemoglobin 7.5 g/dL (12.9-16.9)
[2021-07-29 03:34] LABS: INR 1.1; Prothrombin Time 12.6 Seconds (9.4-12.1)
[2021-07-29] MEDS: Artificial Tears SOLN 15 ML BOTTLE BOTH EYES SCH ×6 (03:36→23:41)
[2021-07-29 03:37] LABS: VBG Ionized Calcium 1.18 mmol/L (1.15-1.35)
[2021-07-29 03:37] LABS: Activated Partial Thrombo Time 27.8 Seconds (26.0-36.0)
[2021-07-29 03:50] LABS: BUN/Creatinine Ratio 15 (6-26); Blood Urea Nitrogen 12 mg/dL (6-20); Calcium 8.2 mg/dL (8.6-10.3); Carbon Dioxide 26 mEq/L (23-29); Chloride 111 mEq/L (98-107); Glucose 160 mg/dL (70-105); Osmolality,Calculated 297 (280-300); Phosphorous 1.6 mg/dL (2.7-4.5); Potassium 3.8 mEq/L (3.5-5.1); Sodium 142 mEq/L (136-145); eGFR For African Americans > 60 (> 60); eGFR For Non-African Americans > 60 (> 60)
[2021-07-29] MEDS: Amiodarone Premix 360 MG/200 ML BAG IVC SCH ×2 (04:27→10:55)
[2021-07-29 04:32] LABS: ABG Base Excess 4 mEq/L (-2 to 3); ABG HCO3 28 mEq/L (21-27); ABG Oxygen Saturation 100 % (95-98); ABG PCO2 36 mmHg (35-45); ABG PH 7.49 pH Units (7.32-7.45); ABG PO2 382 mmHg (85-104); ABG TCO2 29 mEq/L (20-26); Blood Gas Modality ASSIST CONTROL; Blood Gas VT 500 cc
[2021-07-29] MEDS ORDERED: 0.9 % Sodium Chloride 500 ML ONE (04:34)
[2021-07-29] MEDS: Norepinephrine 4 MG/254 ML IV.SOLN IVC SCH ×2 (05:18→20:17)
[2021-07-29] MEDS: Metoclopramide 10 MG/2 ML VIAL IVP SCH ×3 (05:53→17:59)
[2021-07-29] MEDS: Pantoprazole 40 MG VIAL IVP SCH (08:39)
[2021-07-29] MEDS: Chlorhexidine Rinse 15 ML MOUTHWASH MM SCH ×2 (08:39→20:23)
[2021-07-29] MEDS: Docusate Oral Soln 100 MG/10 ML UDC GTUBE SCH ×2 (08:40→20:23)
[2021-07-29] MEDS: Aspirin 81 MG TAB.CHEW GTUBE SCH (08:40)
[2021-07-29 10:53] LABS: Magnesium 2.1 mg/dL (1.6-2.6); Phosphorous 2.4 mg/dL (2.7-4.5); Potassium 3.8 mEq/L (3.5-5.1)
[2021-07-29] MEDS: Furosemide 40 MG/4 ML VIAL IVP SCH ×2 (12:02→20:24)
[2021-07-29] MEDS: Midazolam HCl 50 MG/100 ML IV.SOLN IVC SCH (12:02)
[2021-07-29] MEDS: 0.9 % Sodium Chloride 1,000 ML IVC SCH (13:50)
[2021-07-29 18:43] LABS: Magnesium 2.1 mg/dL (1.6-2.6); Potassium 3.5 mEq/L (3.5-5.1)
[2021-07-29] MEDS: Phenylephrine 10 MG in 0.9 % Sodium Chloride 250 ML IVC SCH (20:17)
[2021-07-30] MEDS: Amiodarone Premix 360 MG/200 ML BAG IVC SCH ×2 (00:15→13:33)
[2021-07-30] MEDS: FentaNYL (PF) 1,000 MCG/100 ML IV.SOLN IVC SCH (01:28)
[2021-07-30] MEDS: niCARdipine 20 MG/200 ML MLS IVC SCH ×7 (03:08→23:29)
[2021-07-30] MEDS: Artificial Tears SOLN 15 ML BOTTLE BOTH EYES SCH ×6 (03:51→23:27)
[2021-07-30] MEDS: Norepinephrine 4 MG/254 ML IV.SOLN IVC SCH ×4 (03:52→23:30)
[2021-07-30 04:18] LABS: VBG Ionized Calcium 1.15 mmol/L (1.15-1.35)
[2021-07-30 04:24] LABS: Basophils % 0.3 %; Eosinophils # 0.2 K/mcL (0.0-0.6); Eosinophils % 2.1 %; Hematocrit 24.4 % (37.5-50.1); Hemoglobin 7.7 g/dL (12.9-16.9); Immature Granulocytes % 0.4 % (0-4); Lymphocytes # 1.7 K/mcL (0.6-4.6); Lymphocytes % 22.9 %; Mean Corpuscular HGB Conc 31.6 g/dL (31.6-35.5); Mean Corpuscular Hemoglobin 30.3 pg (28.0-33.3); Mean Corpuscular Volume 96.1 fL (83.0-100.0); Mean Platelet Volume 10.5 fL (9.4-12.4); Monocytes # 0.6 K/mcL (0.0-1.3); Monocytes % 7.9 %; Nucleated Red Blood Cells 0.7 /100 WBC (0); Platelet Count 108 K/mcL (140-400); Red Blood Count 2.54 M/mcL (4.19-5.50); Segmented Neutrophils % 66.4 %; White Blood Count 7.5 K/mcL (4.3-11.1)
[2021-07-30 04:33] LABS: BUN/Creatinine Ratio 20 (6-26); Blood Urea Nitrogen 15 mg/dL (6-20); Calcium 8.2 mg/dL (8.6-10.3); Carbon Dioxide 28 mEq/L (23-29); Chloride 108 mEq/L (98-107); Glucose 174 mg/dL (70-105); Magnesium 1.8 mg/dL (1.6-2.6); Osmolality,Calculated 299 (280-300); Phosphorous 3.2 mg/dL (2.7-4.5); Potassium 3.5 mEq/L (3.5-5.1); Sodium 142 mEq/L (136-145); eGFR For African Americans > 60 (> 60); eGFR For Non-African Americans > 60 (> 60)
[2021-07-30] MEDS: Potassium Chloride 40 MEQ/200 ML BAG IVPB PRN (04:57)
[2021-07-30 04:59] LABS: ABG Base Excess 3 mEq/L (-2 to 3); ABG HCO3 28 mEq/L (21-27); ABG Oxygen Saturation 90 % (95-98); ABG PCO2 41 mmHg (35-45); ABG PH 7.44 pH Units (7.32-7.45); ABG PO2 57 mmHg (85-104); ABG TCO2 29 mEq/L (20-26); Blood Gas Modality ASSIST CONTROL; Blood Gas VT 500 cc
[2021-07-30 07:42] LABS: ABG Base Excess 0 mEq/L (-2 to 3); ABG HCO3 27 mEq/L (21-27); ABG Oxygen Saturation 94 % (95-98); ABG PCO2 51 mmHg (35-45); ABG PH 7.33 pH Units (7.32-7.45); ABG PO2 79 mmHg (85-104); ABG TCO2 28 mEq/L (20-26); Blood Gas Modality CPAP/PS; Blood Gas Pressure Support 8 cm H2O
[2021-07-30] MEDS: Chlorhexidine Rinse 15 ML MOUTHWASH MM SCH ×2 (07:55→20:16)
[2021-07-30] MEDS: Docusate Oral Soln 100 MG/10 ML UDC GTUBE SCH ×2 (07:55→20:16)
[2021-07-30] MEDS: Aspirin 81 MG TAB.CHEW GTUBE SCH (07:55)
[2021-07-30] MEDS: Furosemide 40 MG/4 ML VIAL IVP SCH (07:57)
[2021-07-30] MEDS: Pantoprazole 40 MG VIAL IVP SCH (07:58)
[2021-07-30 09:42] LABS: ABG Base Excess 3 mEq/L (-2 to 3); ABG HCO3 28 mEq/L (21-27); ABG Oxygen Saturation 96 % (95-98); ABG PCO2 39 mmHg (35-45); ABG PH 7.46 pH Units (7.32-7.45); ABG PO2 76 mmHg (85-104); ABG TCO2 29 mEq/L (20-26)
[2021-07-30] MEDS: 0.9 % Sodium Chloride 1,000 ML IVC SCH ×2 (11:14→23:30)
[2021-07-30 14:38] LABS: Magnesium 1.8 mg/dL (1.6-2.6); Potassium 3.4 mEq/L (3.5-5.1)
[2021-07-30] MEDS ORDERED: Dextrose 4 GM Chewable Tablets PO PRN ×2 (16:45)
[2021-07-30] MEDS ORDERED: D5% in Water 1,000 ML IVC PRN (16:45)
[2021-07-30] MEDS ORDERED: *HR* Dextrose 50 % in Water (Syg) 50 ML SYRINGE IVP PRN (16:45)
[2021-07-30] MEDS ORDERED: Furosemide 20 MG/2 ML VIAL IVP SCH (17:00)
[2021-07-30] MEDS: Phenylephrine 10 MG in 0.9 % Sodium Chloride 250 ML IVC SCH (20:16)
[2021-07-30] MEDS: *HR* Amiodarone 200 MG TABLET PO SCH (20:16)
[2021-07-30] MEDS ORDERED: Insulin LISPRO 300 UNITS/3 ML VIAL SUBQ SCH (21:00)
[2021-07-31] MEDS: Artificial Tears SOLN 15 ML BOTTLE BOTH EYES SCH ×3 (03:40→12:51)
[2021-07-31 04:01] LABS: Basophils % 0.5 %; Eosinophils # 0.4 K/mcL (0.0-0.6); Eosinophils % 5.7 %; Hematocrit 26.7 % (37.5-50.1); Hemoglobin 8.5 g/dL (12.9-16.9); Immature Granulocytes % 0.8 % (0-4); Lymphocytes # 1.1 K/mcL (0.6-4.6); Lymphocytes % 15.2 %; Mean Corpuscular HGB Conc 31.8 g/dL (31.6-35.5); Mean Corpuscular Hemoglobin 30.6 pg (28.0-33.3); Monocytes # 0.7 K/mcL (0.0-1.3); Monocytes % 9.2 %; Neutrophils # 5.1 K/mcL (1.6-8.9); Nucleated Red Blood Cells 0.5 /100 WBC (0); Platelet Count 145 K/mcL (140-400); Red Blood Count 2.78 M/mcL (4.19-5.50); Red Cell Distribution Width 14.5 % (11.5-14.5); Segmented Neutrophils % 68.6 %; White Blood Count 7.5 K/mcL (4.3-11.1)
[2021-07-31 04:21] LABS: BUN/Creatinine Ratio 18 (6-26); Blood Urea Nitrogen 11 mg/dL (6-20); Calcium 8.1 mg/dL (8.6-10.3); Carbon Dioxide 30 mEq/L (23-29); Chloride 102 mEq/L (98-107); Glucose 187 mg/dL (70-105); Osmolality,Calculated 294 (280-300); Potassium 3.4 mEq/L (3.5-5.1); Sodium 140 mEq/L (136-145); eGFR For African Americans > 60 (> 60); eGFR For Non-African Americans > 60 (> 60)
[2021-07-31] MEDS: niCARdipine 20 MG/200 ML MLS IVC SCH (05:07)
[2021-07-31] MEDS: Calcium Gluconate 1gm/50mL 1 GM/50 ML BAG IVPB PRN (05:53)
[2021-07-31] MEDS ORDERED: Furosemide 20 MG/2 ML VIAL IVP SCH (08:00)
[2021-07-31] MEDS: Aspirin 81 MG TAB.CHEW GTUBE SCH (08:22)
[2021-07-31] MEDS: Chlorhexidine Rinse 15 ML MOUTHWASH MM SCH (08:22)
[2021-07-31] MEDS: Pantoprazole 40 MG VIAL IVP SCH (08:22)
[2021-07-31] MEDS: *HR* Amiodarone 200 MG TABLET PO SCH ×2 (08:22→20:09)
[2021-07-31] MEDS: Docusate Oral Soln 100 MG/10 ML UDC GTUBE SCH (08:22)
[2021-07-31] MEDS: Insulin LISPRO 300 UNITS/3 ML VIAL SUBQ SCH ×4 (08:23→20:11)
[2021-07-31] MEDS ORDERED: Potassium Chloride 40 MEQ/200 ML BAG IVPB PRN (12:39)
[2021-07-31] MEDS ORDERED: Naloxone 0.4 MG/ML INJ IVP PRN (12:39)
[2021-07-31] MEDS ORDERED: Ondansetron 4 MG/2 ML VIAL IVP PRN (12:39)
[2021-07-31] MEDS ORDERED: Acetaminophen 325 MG TABLET PO PRN (12:39)
[2021-07-31] MEDS ORDERED: Insulin Regular, Human 100 UNIT/ML IV PRN (12:39)
[2021-07-31] MEDS ORDERED: Dextrose 4 GM Chewable Tablets PO PRN ×2 (12:39)
[2021-07-31] MEDS ORDERED: *HR* Dextrose 50 % in Water (Syg) 50 ML SYRINGE IVP PRN (12:39)
[2021-07-31] MEDS ORDERED: D5% in Water 1,000 ML IVC PRN (12:39)
[2021-07-31 16:31] LABS: VBG Ionized Calcium 1.13 mmol/L (1.15-1.35)
[2021-07-31 16:52] LABS: BUN/Creatinine Ratio 21 (6-26); Blood Urea Nitrogen 13 mg/dL (6-20); Calcium 8.5 mg/dL (8.6-10.3); Carbon Dioxide 31 mEq/L (23-29); Chloride 98 mEq/L (98-107); Glucose 209 mg/dL (70-105); Magnesium 1.8 mg/dL (1.6-2.6); Osmolality,Calculated 292 (280-300); Potassium 3.4 mEq/L (3.5-5.1); Sodium 138 mEq/L (136-145); eGFR For African Americans > 60 (> 60); eGFR For Non-African Americans > 60 (> 60)
[2021-07-31] MEDS: Furosemide 20 MG/2 ML VIAL IVP SCH (17:43)
[2021-07-31 19:04] LABS: Hematocrit 28.5 % (37.5-50.1); Hemoglobin 9.5 g/dL (12.9-16.9)
[2021-07-31] MEDS: Docusate Oral Soln 100 MG/10 ML UDC PO SCH (20:09)
[2021-07-31] MEDS ORDERED: Docusate Oral Soln 100 MG/10 ML UDC PO SCH (21:00)
[2021-08-01 06:04] LABS: Basophils % 0.3 %; Eosinophils # 0.5 K/mcL (0.0-0.6); Eosinophils % 4.9 %; Hematocrit 29.7 % (37.5-50.1); Hemoglobin 9.5 g/dL (12.9-16.9); Immature Granulocytes % 1.2 % (0-4); Lymphocytes # 1.4 K/mcL (0.6-4.6); Lymphocytes % 15.4 %; Mean Corpuscular Hemoglobin 30.4 pg (28.0-33.3); Mean Corpuscular Volume 94.9 fL (83.0-100.0); Mean Platelet Volume 10.1 fL (9.4-12.4); Monocytes # 0.8 K/mcL (0.0-1.3); Monocytes % 8.5 %; Neutrophils # 6.4 K/mcL (1.6-8.9); Nucleated Red Blood Cells 0.8 /100 WBC (0); Platelet Count 207 K/mcL (140-400); Red Blood Count 3.13 M/mcL (4.19-5.50); Red Cell Distribution Width 14.3 % (11.5-14.5); Segmented Neutrophils % 69.7 %; White Blood Count 9.1 K/mcL (4.3-11.1)
[2021-08-01 06:20] LABS: BUN/Creatinine Ratio 18 (6-26); Blood Urea Nitrogen 12 mg/dL (6-20); Calcium 8.5 mg/dL (8.6-10.3); Carbon Dioxide 31 mEq/L (23-29); Chloride 97 mEq/L (98-107); Glucose 236 mg/dL (70-105); Osmolality,Calculated 293 (280-300); Potassium 3.3 mEq/L (3.5-5.1); Sodium 138 mEq/L (136-145); eGFR For African Americans > 60 (> 60); eGFR For Non-African Americans > 60 (> 60)
[2021-08-01] MEDS: *HR* Amiodarone 200 MG TABLET PO SCH ×2 (08:06→21:48)
[2021-08-01] MEDS: Docusate Oral Soln 100 MG/10 ML UDC PO SCH (08:07)
[2021-08-01] MEDS: Insulin LISPRO 300 UNITS/3 ML VIAL SUBQ SCH ×4 (08:08→22:18)
[2021-08-01] MEDS: *HR* OxyCODONE/APAP 5/325 TABLET PO PRN ×2 (08:09→13:10)
[2021-08-01] MEDS ORDERED: Ipratropium/Albuterol Neb 3 ML IH PRN (08:15)
[2021-08-01] MEDS ORDERED: Isovue-370 500 ML BOTTLE IVP ONE (08:24)
[2021-08-01] MEDS ORDERED: Aspirin 81 MG TAB.CHEW GTUBE SCH (09:00)
[2021-08-01] MEDS: Furosemide 20 MG/2 ML VIAL IVP SCH (09:48)
[2021-08-01 10:46] LABS: Cystatin C 0.8 mg/L (0.5-1.2)
[2021-08-01 11:41] LABS: Adenovirus Not Detected (Not Detect); Bordetella Pertussis Not Detected (Not Detect); Chlamydophila pneumoniae Not Detected (Not Detect); Coronavirus 229E Not Detected (Not Detect); Coronavirus HKU1 Not Detected (Not Detect); Coronavirus NL63 Not Detected (Not Detect); Coronavirus OC43 Not Detected (Not Detect); Human Metapneumovirus Not Detected (Not Detect); Human Rhinovirus/Enterovirus Not Detected (Not Detect); Influenza A Subtype 2009 H1 Not Detected (Not Detect); Influenza B Not Detected (Not Detect); Mycoplasma pneumoniae Not Detected (Not Detect); Parainfluenza Virus 1 Not Detected (Not Detect); Parainfluenza Virus 2 Not Detected (Not Detect); Parainfluenza Virus 3 Not Detected (Not Detect); Parainfluenza Virus 4 Not Detected (Not Detect); Respiratory Syncytial Virus Not Detected (Not Detect); SARS-CoV-2 Not Detected (Not Detect)
[2021-08-01] MEDS ORDERED: acetaZOLAMIDE 500 MG in Water for inj. (sterile) 5 ML IVP ONE (12:49)
[2021-08-01] MEDS: levoFLOXacin 750 MG TABLET PO SCH (13:08)
[2021-08-01] MEDS: Sucralfate 1 GM TABLET PO SCH (21:51)
[2021-08-01] MEDS: Insulin DETEMIR 100 UNIT/ML X5UNITS SUBQ SCH (22:26)
[2021-08-02 02:26] LABS: Hematocrit 29.2 % (37.5-50.1); Hemoglobin 9.2 g/dL (12.9-16.9); Mean Corpuscular HGB Conc 31.5 g/dL (31.6-35.5); Mean Corpuscular Hemoglobin 30.2 pg (28.0-33.3); Mean Corpuscular Volume 95.7 fL (83.0-100.0); Mean Platelet Volume 10.4 fL (9.4-12.4); Platelet Count 246 K/mcL (140-400); Red Blood Count 3.05 M/mcL (4.19-5.50); Red Cell Distribution Width 14.5 % (11.5-14.5); White Blood Count 11.7 K/mcL (4.3-11.1)
[2021-08-02 02:29] LABS: BUN/Creatinine Ratio 17 (6-26); Blood Urea Nitrogen 12 mg/dL (6-20); Calcium 8.5 mg/dL (8.6-10.3); Carbon Dioxide 26 mEq/L (23-29); Chloride 104 mEq/L (98-107); Glucose 197 mg/dL (70-105); Osmolality,Calculated 291 (280-300); Potassium 3.6 mEq/L (3.5-5.1); Sodium 138 mEq/L (136-145); eGFR For African Americans > 60 (> 60); eGFR For Non-African Americans > 60 (> 60)
[2021-08-02] MEDS: Docusate Oral Soln 100 MG/10 ML UDC PO SCH (06:10)
[2021-08-02] MEDS: Insulin LISPRO 300 UNITS/3 ML VIAL SUBQ SCH ×7 (09:07→20:22)
[2021-08-02] MEDS: Sucralfate 1 GM TABLET PO SCH ×4 (09:10→20:21)
[2021-08-02] MEDS: Aspirin 81 MG TAB.CHEW PO SCH (09:12)
[2021-08-02] MEDS: *HR* Amiodarone 200 MG TABLET PO SCH (09:12)
[2021-08-02] MEDS: levoFLOXacin 750 MG TABLET PO SCH (09:13)
[2021-08-02] MEDS: Furosemide 40 MG TABLET PO SCH (12:57)
[2021-08-02] MEDS: Insulin DETEMIR 100 UNIT/ML X5UNITS SUBQ SCH ×2 (12:58→20:22)
[2021-08-03 03:41] LABS: Basophils # 0.1 K/mcL (0.0-0.2); Basophils % 0.4 %; Eosinophils # 0.6 K/mcL (0.0-0.6); Eosinophils % 4.8 %; Hematocrit 28.5 % (37.5-50.1); Hemoglobin 9.4 g/dL (12.9-16.9); Lymphocytes # 1.8 K/mcL (0.6-4.6); Lymphocytes % 14.9 %; Mean Corpuscular Hemoglobin 31.4 pg (28.0-33.3); Mean Corpuscular Volume 95.3 fL (83.0-100.0); Mean Platelet Volume 9.9 fL (9.4-12.4); Monocytes # 1.1 K/mcL (0.0-1.3); Monocytes % 8.6 %; Neutrophils # 8.5 K/mcL (1.6-8.9); Nucleated Red Blood Cells 0.3 /100 WBC (0); Platelet Count 297 K/mcL (140-400); Red Blood Count 2.99 M/mcL (4.19-5.50); Red Cell Distribution Width 14.3 % (11.5-14.5); Segmented Neutrophils % 69.3 %; White Blood Count 12.3 K/mcL (4.3-11.1)
[2021-08-03 04:00] LABS: BUN/Creatinine Ratio 16 (6-26); Blood Urea Nitrogen 11 mg/dL (6-20); Calcium 8.3 mg/dL (8.6-10.3); Carbon Dioxide 27 mEq/L (23-29); Chloride 103 mEq/L (98-107); Glucose 277 mg/dL (70-105); Magnesium 1.7 mg/dL (1.6-2.6); Osmolality,Calculated 291 (280-300); Phosphorous 2.8 mg/dL (2.7-4.5); Potassium 3.5 mEq/L (3.5-5.1); Sodium 136 mEq/L (136-145); eGFR For African Americans > 60 (> 60); eGFR For Non-African Americans > 60 (> 60)
[2021-08-03] MEDS: Sucralfate 1 GM TABLET PO SCH ×2 (08:26→11:40)
[2021-08-03] MEDS: levoFLOXacin 750 MG TABLET PO SCH (08:26)
[2021-08-03] MEDS: Aspirin 81 MG TAB.CHEW PO SCH (08:27)
[2021-08-03] MEDS: Furosemide 40 MG TABLET PO SCH (08:29)
[2021-08-03] MEDS: Insulin LISPRO 300 UNITS/3 ML VIAL SUBQ SCH ×4 (08:37→11:42)
[2021-08-03] MEDS: Insulin DETEMIR 100 UNIT/ML X5UNITS SUBQ SCH (08:40)
[2021-08-03] MEDS ORDERED: lisinopriL 10 MG TABLET PO SCH (09:00)
[2021-08-03] MEDS ORDERED: *HR* Amiodarone 200 MG TABLET PO SCH (09:00)
[2021-08-03 12:10] VITALS: TEMP 97.4
[2021-08-03 12:58] LABS: Hematocrit 30.3 % (37.5-50.1); Hemoglobin 9.8 g/dL (12.9-16.9); Mean Corpuscular HGB Conc 32.3 g/dL (31.6-35.5); Mean Corpuscular Hemoglobin 30.6 pg (28.0-33.3); Mean Corpuscular Volume 94.7 fL (83.0-100.0); Mean Platelet Volume 9.7 fL (9.4-12.4); Platelet Count 354 K/mcL (140-400); Red Cell Distribution Width 14.4 % (11.5-14.5); White Blood Count 12.3 K/mcL (4.3-11.1)
[2021-08-03 13:08] LABS: BUN/Creatinine Ratio 14 (6-26); Blood Urea Nitrogen 11 mg/dL (6-20); Calcium 8.5 mg/dL (8.6-10.3); Carbon Dioxide 28 mEq/L (23-29); Chloride 101 mEq/L (98-107); Glucose 276 mg/dL (70-105); Magnesium 1.8 mg/dL (1.6-2.6); Osmolality,Calculated 289 (280-300); Phosphorous 2.5 mg/dL (2.7-4.5); Potassium 3.2 mEq/L (3.5-5.1); Sodium 135 mEq/L (136-145); eGFR For African Americans > 60 (> 60); eGFR For Non-African Americans > 60 (> 60)
[2021-08-03 14:18] VITALS: O2SAT 92
[2021-08-03 15:42] VITALS: BP 161/72; PULSE 98
== END 2021-08-03 16:32 | disposition home or self-care (01) | DRG 166 ==
LOC: SAMDAY 10:58 → ICNU 18:20 → SUATTDRO 18:20 → 2NNU 08-01 04:06
PROVIDERS: ADMIT Thoracic Surgery (Cardiothoracic Vascular Surgery); ATTEND Internal Medicine